=== PATIENT | female | born 1965 | race Two or more races ===

== ENCOUNTER 2023-03-29 20:48 | Emergency (ER) | payer MEDICAID ==
[~2023-03-29] VITALS: Ht 157.5 cm; Wt 84.5 kg
[~2023-03-29 20:48] MED LIST: ALBU0.084 NEB; AUG875T PO; CARV3.1240 PO; CHOL25CH3 PO; CYCL-837 PO; DOCU-111 PO; FENT25DI2 TD; FLUT1SPR5; FURO20TA3 PO; HYDR-3682 PO; HYDR-4188 OR; HYDR-4798 PO; IBUP-1453 PO; IBUP1TAB4 PO; LEVO150T10 PO; LIDO5DIS21 TOP; NALO4SPR2; POTA10TA51 PO; SERT-160 PO; SPIR25TA PO; SPIR25TA8 PO; TRIATAB3 OR; VERA120T92 PO
[2023-03-29 21:11] VITALS: TEMP 100.8
[2023-03-29 21:15] VITALS: BP 119/71; PULSE 87; RESP 18; O2SAT 92
[2023-03-29] MEDS ORDERED: ACETAMINOPHEN 500 MG TAB PO ONE (21:15)
[2023-03-29 21:47] LABS: Basophils # (auto) 0.1 10 ^3/uL (0-0.2); Basophils % (auto) 0.7 % (0.0-2.0); Eosinophils # (auto) 0.2 10 ^3/uL (0-0.8); Eosinophils % (auto) 1.8 % (0.0-7.0); Hematocrit 39.3 % (36.0-46.0); Hemoglobin 13.3 g/dL (12.2-16.2); Lymphocytes # (auto) 0.9 10 ^3/uL (0.4-5.4); Lymphocytes % (auto) 7.6 % (10.0-50.0); Mean Corpuscular Hemoglobin 28.2 pg (28.0-32.0); Mean Corpuscular Hgb Conc. 33.9 g/dL (32.0-36.0); Mean Corpuscular Volume 83.1 fL (80.0-100.0); Monocytes % (auto) 8.4 % (0.0-12.0); Neutrophils % (auto) 81.5 % (37.0-80.0); Nucleated Red Blood Cells % 0.1 %; Red Blood Cells 4.73 10^6/uL (4.0-5.20); Red Cell Distribution Width 14.1 % (11.8-14.3); White Blood Cell 12.3 10^3/uL (4.4-10.8)
[2023-03-29 22:02] LABS: Alkaline Phosphatase 104 U/L (46-116)
[2023-03-29 22:03] LABS: Alanine Aminotransferase 20 U/L (7-40); Albumin 4.5 g/dL (3.2-4.8); Anion Gap 8 (5-15); Aspartate Aminotransferase 22 U/L (13-40); Bilirubin, Total 0.7 mg/dL (0.2-1.0); Blood Urea Nitrogen 9 mg/dL (9-23); Calcium 9.1 mg/dL (8.5-10.1); Carbon Dioxide 31 mmol/L (20-30); Chloride 87 mmol/L (98-107); Glucose 102 mg/dL (74-106); Sodium 126 mmol/L (136-145); Total Protein 6.8 g/dL (5.7-8.2)
[2023-03-29 22:07] LABS: Potassium 2.3 mmol/L (3.5-5.1)
[2023-03-29] MEDS ORDERED: PIPERACILLIN-TAZOB 3.375GM 100 ML IV ONE (23:00)
[2023-03-29] MEDS ORDERED: MAGNESIUM SULFATE 1GM/100ML 100 ML IV ONE (23:00)
[2023-03-29] MEDS ORDERED: VANCOMYCIN 1GM/250ML 250 ML IV ONE (23:00)
[2023-03-29] MEDS ORDERED: POTASSIUM CHL 20MEQ/100ML 100 ML IV SCH (23:00)
[2023-03-29] MEDS ORDERED: SODIUM CHL 3% 500 ML IV ONE (23:00)
[2023-03-29 23:58] LABS: Erythrocyte Sedimentation Rate 8 mm/hr (0-20)
[2023-03-30] MEDS ORDERED: VANCOMYCIN HCL 500MG/5ML ORAL SOL GT SCH (06:00)
[2023-03-31] MEDS ORDERED: TRIA75TA55 PO (17:18)
== END 2023-03-30 00:59 | disposition left against medical advice (07) ==
LOC: ER 20:48
DX: S91.301A Unspecified open wound, right foot, initial encounter (principal); I10 Essential (primary) hypertension; M19.90 Unspecified osteoarthritis, unspecified site; J45.909 Unspecified asthma, uncomplicated; Z98.890 Other specified postprocedural states; Z88.8 Allergy status to other drugs, medicaments and biological substances; Z79.899 Other long term (current) drug therapy; X58.XXXA Exposure to other specified factors, initial encounter; Y93.89 Activity, other specified; Y92.89 Other specified places as the place of occurrence of the external cause; Y99.8 Other external cause status
CPT/HCPCS: 36415; 71045; 73700; 80053; 83605; 83880; 84484; 85025; 85652; 86141; 87040; 93005

== ENCOUNTER 2023-03-30 18:33 | Inpatient (IN) | payer MEDICAID ==
[~2023-03-30] VITALS: Ht 157.5 cm; Wt 88.6 kg
[2023-03-30 20:15] LABS: Basophils # (auto) 0 10 ^3/uL (0-0.2); Basophils % (auto) 0.3 % (0.0-2.0); Eosinophils # (auto) 0.1 10 ^3/uL (0-0.8); Eosinophils % (auto) 0.6 % (0.0-7.0); Hematocrit 38.7 % (36.0-46.0); Hemoglobin 13.3 g/dL (12.2-16.2); Lymphocytes # (auto) 0.5 10 ^3/uL (0.4-5.4); Lymphocytes % (auto) 5.5 % (10.0-50.0); Mean Corpuscular Hemoglobin 28.3 pg (28.0-32.0); Mean Corpuscular Hgb Conc. 34.3 g/dL (32.0-36.0); Mean Corpuscular Volume 82.6 fL (80.0-100.0); Monocytes # (auto) 0.3 10 ^3/uL (0-1.3); Monocytes % (auto) 3.5 % (0.0-12.0); Neutrophils # (auto) 8.4 10 ^3/uL (1.6-8.6); Neutrophils % (auto) 90.1 % (37.0-80.0); Red Blood Cells 4.69 10^6/uL (4.0-5.20); Red Cell Distribution Width 14.3 % (11.8-14.3); White Blood Cell 9.3 10^3/uL (4.4-10.8)
[2023-03-30 20:33] LABS: Alanine Aminotransferase 19 U/L (7-40); Albumin 4.5 g/dL (3.2-4.8); Alkaline Phosphatase 99 U/L (46-116); Anion Gap 7 (5-15); Aspartate Aminotransferase 26 U/L (13-40); BUN/Creatinine Ratio 11.9 (10.0-20.0); Blood Urea Nitrogen 10 mg/dL (9-23); Calcium 9.2 mg/dL (8.5-10.1); Carbon Dioxide 32 mmol/L (20-30); Chloride 86 mmol/L (98-107); Glucose 96 mg/dL (74-106); Sodium 125 mmol/L (136-145)
[2023-03-30 20:34] LABS: Bilirubin, Total 0.9 mg/dL (0.2-1.0); Total Protein 6.7 g/dL (5.7-8.2)
[2023-03-30 20:39] LABS: Potassium 2.6 mmol/L (3.5-5.1)
[2023-03-30] MEDS ORDERED: VANCOMYCIN 1GM/250ML 250 ML IV ONE (21:00)
[2023-03-30] MEDS ORDERED: cefTRIAXone 1GM/50ML D5W 50 ML IV ONE (21:00)
[2023-03-30] MEDS ORDERED: ONDANSETRON HCL 4 MG/2 ML VIAL IV ONE (21:00)
[2023-03-30] MEDS ORDERED: hydrALAZINE HCL 20 MG/ML VL IV PRN (22:30)
[2023-03-30] MEDS ORDERED: NITROGLYCERIN 0.4 MG SL TAB SL PRN (22:30)
[2023-03-30] MEDS ORDERED: DOCUSATE SOD 100 MG CAP PO PRN (22:30)
[2023-03-30] MEDS ORDERED: ACETAMINOPHEN 325 MG TAB PO ONE (22:30)
[2023-03-30] MEDS ORDERED: ACETAMINOPHEN 325 MG TAB PO PRN (22:30)
[2023-03-30] MEDS ORDERED: ceFAZolin 1GM/50ML 50 ML IV ONE (22:30)
[2023-03-30] MEDS ORDERED: MORPHINE SULFATE INJ 2 MG/ml SYRG IV PRN ×2 (22:30)
[2023-03-30] MEDS ORDERED: PANTOPRAZOLE 40 MG/10 ML VIAL INJ IV ONE (22:45)
[2023-03-30 23:42] LABS: Erythrocyte Sedimentation Rate 9 mm/hr (0-20)
[2023-03-31] MEDS: SODIUM CHLORIDE 0.9% 1,000 ML IV SCH ×2 (00:09→07:41)
[2023-03-31] MEDS: POTASSIUM CHL 20MEQ/100ML 100 ML IV SCH ×2 (01:06→03:39)
[2023-03-31 01:08] VITALS: PULSE 93; RESP 20; O2SAT 94
[2023-03-31] MEDS: IBUPROFEN 800 MG TAB PO PRN (03:54)
[2023-03-31] MEDS ORDERED: traMADol HCL 50 MG TAB PO ONE (05:45)
[2023-03-31] MEDS ORDERED: PATIENTS OWN MEDICATION (Cyclobenzaprine Hcl 10 MG) PO SCH (06:00)
[2023-03-31] MEDS ORDERED: ceFAZolin 1GM/50ML 50 ML IV SCH (06:00)
[2023-03-31 07:18] LABS: Basophils # (auto) 0 10 ^3/uL (0-0.2); Basophils % (auto) 0.5 % (0.0-2.0); Eosinophils # (auto) 0 10 ^3/uL (0-0.8); Eosinophils % (auto) 0.2 % (0.0-7.0); Hematocrit 34.6 % (36.0-46.0); Hemoglobin 11.8 g/dL (12.2-16.2); Lymphocytes # (auto) 0.4 10 ^3/uL (0.4-5.4); Lymphocytes % (auto) 5.7 % (10.0-50.0); Mean Corpuscular Hemoglobin 28.1 pg (28.0-32.0); Mean Corpuscular Hgb Conc. 34.1 g/dL (32.0-36.0); Mean Corpuscular Volume 82.4 fL (80.0-100.0); Monocytes # (auto) 0.5 10 ^3/uL (0-1.3); Monocytes % (auto) 6.5 % (0.0-12.0); Neutrophils # (auto) 6.6 10 ^3/uL (1.6-8.6); Neutrophils % (auto) 87.1 % (37.0-80.0); Red Cell Distribution Width 14.2 % (11.8-14.3); White Blood Cell 7.5 10^3/uL (4.4-10.8)
[2023-03-31 07:27] LABS: INR 1.18 (0.9-1.15); Prothrombin Time 12.3 sec (9.3-11.8)
[2023-03-31 07:33] LABS: Alanine Aminotransferase 17 U/L (7-40); Albumin 3.9 g/dL (3.2-4.8); Alkaline Phosphatase 87 U/L (46-116); Anion Gap 7 (5-15); Aspartate Aminotransferase 20 U/L (13-40); BUN/Creatinine Ratio 11.1 (10.0-20.0); Blood Urea Nitrogen 7 mg/dL (9-23); Calcium 8.6 mg/dL (8.5-10.1); Carbon Dioxide 28 mmol/L (20-30); Chloride 94 mmol/L (98-107); Glucose 107 mg/dL (74-106); Sodium 129 mmol/L (136-145)
[2023-03-31 07:34] LABS: Bilirubin, Total 0.5 mg/dL (0.2-1.0); Total Protein 5.9 g/dL (5.7-8.2)
[2023-03-31 07:38] LABS: Potassium 2.8 mmol/L (3.5-5.1)
[2023-03-31 08:00] VITALS: PULSE 74; RESP 18; O2SAT 98
[2023-03-31] MEDS ORDERED: POTASSIUM EFFERVESENT TAB 25 MEQ PO ONE (08:00)
[2023-03-31] MEDS ORDERED: HYDROCHLOROTHIAZIDE OR SCH (10:00)
[2023-03-31] MEDS ORDERED: TRIAMTERENE OR SCH (10:00)
[2023-03-31] MEDS ORDERED: PATIENTS OWN MEDICATION (Sertraline Hcl 100 MG) PO SCH (10:00)
[2023-03-31] MEDS ORDERED: PATIENTS OWN MEDICATION (Levothyroxine Sodium 150 MCG) PO SCH (10:00)
[2023-03-31] MEDS ORDERED: PATIENTS OWN MEDICATION (Potassium Chloride (Potassium Chloride Cr) 10 MEQ) PO SCH (10:00)
[2023-03-31] MEDS ORDERED: PANTOPRAZOLE 40 MG/10 ML VIAL INJ IV SCH (10:00)
[2023-03-31] MEDS: LIDOCAINE 5% TOPICAL PATCH TOP SCH (11:09)
[2023-03-31] MEDS: POTASSIUM CHL 10 Meq TABLET PO SCH ×2 (11:10→22:53)
[2023-03-31] MEDS: CARVEDILOL 3.125 MG TAB PO SCH ×2 (11:11→22:48)
[2023-03-31] MEDS: hydrOXYchloroQUINE SULFATE 200 MG TAB PO SCH ×2 (11:11→22:00)
[2023-03-31] MEDS: SERTRALINE HCL 50 MG TAB PO SCH ×2 (11:12→22:00)
[2023-03-31] MEDS: FUROSEMIDE 20 MG TAB PO SCH (11:13)
[2023-03-31] MEDS: SPIRONOLACTONE 25 MG TAB PO SCH (11:14)
[2023-03-31] MEDS: TRIAMTERENE/HCTZ 37.5/25 MG CAP/TAB PO SCH (11:14)
[2023-03-31] MEDS: VERAPAMIL HCL 120 mg ER tab PO SCH (11:15)
[2023-03-31] MEDS: LEVOTHYROXINE SODIUM 50 MCG TAB PO SCH (11:16)
[2023-03-31] MEDS: PATIENTS OWN MEDICATION (Hydroxyzine Hcl 25 MG) PO SCH (11:18)
[2023-03-31] MEDS: SOD CHL 0.9%/ KCL 40MEQ 1,000 ML IV SCH (12:18)
[2023-03-31] MEDS: CYCLOBENZAPRINE HCL 10 MG TAB PO SCH ×2 (14:18→22:00)
[2023-03-31] MEDS: PIPERACILLIN-TAZOB 3.375GM 100 ML IV SCH (14:46)
[2023-03-31] MEDS: fentaNYL 25MCG/HR 25 MCG/HR PAT TD SCH (15:37)
[2023-03-31] MEDS ORDERED: TRIA75TA55 PO (17:18)
[2023-04-01] MEDS: PIPERACILLIN-TAZOB 3.375GM 100 ML IV SCH ×4 (00:16→20:54)
[2023-04-01] MEDS: SOD CHL 0.9%/ KCL 40MEQ 1,000 ML IV SCH ×3 (00:16→23:52)
[2023-04-01 05:00] VITALS: BP 133/80; PULSE 70; RESP 16; TEMP 98.3; O2SAT 94
[2023-04-01] MEDS: CYCLOBENZAPRINE HCL 10 MG TAB PO SCH ×3 (06:12→20:55)
[2023-04-01] MEDS: LEVOTHYROXINE SODIUM 100 MCG TAB PO SCH (06:13)
[2023-04-01] MEDS: IBUPROFEN 800 MG TAB PO PRN (06:25)
[2023-04-01 08:30] VITALS: PULSE 73
[2023-04-01 09:00] VITALS: BP 148/86; PULSE 71; RESP 20; TEMP 97.8; O2SAT 93
[2023-04-01 09:26] LABS: Basophils # (auto) 0 10 ^3/uL (0-0.2); Basophils % (auto) 0.7 % (0.0-2.0); Eosinophils # (auto) 0.1 10 ^3/uL (0-0.8); Eosinophils % (auto) 1.9 % (0.0-7.0); Hematocrit 33.8 % (36.0-46.0); Hemoglobin 11.5 g/dL (12.2-16.2); Lymphocytes # (auto) 0.6 10 ^3/uL (0.4-5.4); Mean Corpuscular Hemoglobin 28.4 pg (28.0-32.0); Mean Corpuscular Hgb Conc. 33.9 g/dL (32.0-36.0); Mean Corpuscular Volume 83.8 fL (80.0-100.0); Monocytes # (auto) 0.5 10 ^3/uL (0-1.3); Monocytes % (auto) 13.5 % (0.0-12.0); Neutrophils # (auto) 2.5 10 ^3/uL (1.6-8.6); Neutrophils % (auto) 66.9 % (37.0-80.0); Nucleated Red Blood Cells % 0.2 %; Red Blood Cells 4.04 10^6/uL (4.0-5.20); Red Cell Distribution Width 14.5 % (11.8-14.3); White Blood Cell 3.7 10^3/uL (4.4-10.8)
[2023-04-01 09:36] LABS: Chloride 102 mmol/L (98-107); Potassium 3.6 mmol/L (3.5-5.1); Sodium 133 mmol/L (136-145)
[2023-04-01 09:38] LABS: Anion Gap 4 (5-15); Calcium 8.5 mg/dL (8.5-10.1); Carbon Dioxide 27 mmol/L (20-30)
[2023-04-01 09:43] LABS: BUN/Creatinine Ratio 9.8 (10.0-20.0); Blood Urea Nitrogen 6 mg/dL (9-23); Glucose 129 mg/dL (74-106)
[2023-04-01] MEDS: PATIENTS OWN MEDICATION (Hydroxyzine Hcl 25 MG) PO SCH (10:00)
[2023-04-01] MEDS: VERAPAMIL HCL 120 mg ER tab PO SCH (10:09)
[2023-04-01] MEDS: hydrOXYchloroQUINE SULFATE 200 MG TAB PO SCH ×2 (10:09→20:55)
[2023-04-01] MEDS: TRIAMTERENE/HCTZ 37.5/25 MG CAP/TAB PO SCH (10:10)
[2023-04-01] MEDS: SERTRALINE HCL 50 MG TAB PO SCH ×2 (10:10→20:55)
[2023-04-01] MEDS: FUROSEMIDE 20 MG TAB PO SCH (10:11)
[2023-04-01] MEDS: SPIRONOLACTONE 25 MG TAB PO SCH (10:11)
[2023-04-01] MEDS: CARVEDILOL 3.125 MG TAB PO SCH ×2 (10:12→20:57)
[2023-04-01] MEDS: POTASSIUM CHL 10 Meq TABLET PO SCH (10:13)
[2023-04-01] MEDS: LEVOTHYROXINE SODIUM 50 MCG TAB PO SCH (10:13)
[2023-04-01] MEDS: LIDOCAINE 5% TOPICAL PATCH TOP SCH (10:14)
[2023-04-01 13:00] VITALS: BP 115/57; PULSE 70; RESP 17; TEMP 97.6; O2SAT 95
[2023-04-01] MEDS: traMADol HCL 50 MG TAB PO PRN (15:35)
[2023-04-01 17:00] VITALS: BP 128/81; PULSE 68; RESP 20; TEMP 98.2; O2SAT 97
[2023-04-01] MEDS: ONDANSETRON HCL 4 MG/2 ML VIAL IV PRN (19:48)
[2023-04-01 22:00] VITALS: BP 147/92; PULSE 76; RESP 17; TEMP 97; O2SAT 96
[2023-04-02 05:14] VITALS: BP 137/71; PULSE 72; RESP 18; TEMP 97.1; O2SAT 93
[2023-04-02] MEDS: CYCLOBENZAPRINE HCL 10 MG TAB PO SCH ×3 (05:54→21:28)
[2023-04-02] MEDS: PIPERACILLIN-TAZOB 3.375GM 100 ML IV SCH ×3 (05:54→21:29)
[2023-04-02] MEDS: LEVOTHYROXINE SODIUM 100 MCG TAB PO SCH (05:59)
[2023-04-02 08:00] VITALS: PULSE 61; RESP 20; O2SAT 100
[2023-04-02 09:31] VITALS: BP 143/75; PULSE 61; RESP 20; TEMP 97.8; O2SAT 100
[2023-04-02] MEDS: SERTRALINE HCL 50 MG TAB PO SCH ×2 (09:53→21:27)
[2023-04-02] MEDS: hydrOXYchloroQUINE SULFATE 200 MG TAB PO SCH ×2 (09:53→21:28)
[2023-04-02] MEDS: FUROSEMIDE 20 MG TAB PO SCH (09:54)
[2023-04-02] MEDS: CARVEDILOL 3.125 MG TAB PO SCH ×2 (09:54→21:28)
[2023-04-02] MEDS: LEVOTHYROXINE SODIUM 50 MCG TAB PO SCH (09:54)
[2023-04-02] MEDS: VERAPAMIL HCL 120 mg ER tab PO SCH (09:55)
[2023-04-02] MEDS: PATIENTS OWN MEDICATION (Hydroxyzine Hcl 25 MG) PO SCH (09:56)
[2023-04-02] MEDS: LIDOCAINE 5% TOPICAL PATCH TOP SCH (09:57)
[2023-04-02] MEDS: DAKINS HALF STR 0.25% (NaHypochlorite) 473 ML TOPICAL SOL TOP SCH (09:57)
[2023-04-02] MEDS: ONDANSETRON HCL 4 MG/2 ML VIAL IV PRN ×2 (10:39→17:59)
[2023-04-02 12:57] VITALS: BP 135/72; PULSE 68; RESP 18; TEMP 97.6; O2SAT 98
[2023-04-02 16:42] VITALS: BP 141/74; PULSE 73; RESP 19; TEMP 98.5; O2SAT 94
[2023-04-02] MEDS: traMADol HCL 50 MG TAB PO PRN (21:28)
[2023-04-02 22:00] VITALS: BP 155/87; PULSE 74; RESP 18; TEMP 97.7; O2SAT 92
[2023-04-03] VITALS (7 sets, daily range): BP systolic 135–162; BP diastolic 74–94; PULSE 70–86; RESP 18–20; TEMP 97.5–98.1; O2SAT 95–99
[2023-04-03] MEDS: CYCLOBENZAPRINE HCL 10 MG TAB PO SCH ×3 (06:51→22:38)
[2023-04-03] MEDS: LEVOTHYROXINE SODIUM 100 MCG TAB PO SCH (06:51)
[2023-04-03] MEDS: PIPERACILLIN-TAZOB 3.375GM 100 ML IV SCH ×3 (06:51→22:37)
[2023-04-03 08:42] LABS: Basophils # (auto) 0 10 ^3/uL (0-0.2); Basophils % (auto) 0.9 % (0.0-2.0); Eosinophils # (auto) 0.1 10 ^3/uL (0-0.8); Eosinophils % (auto) 2.6 % (0.0-7.0); Hematocrit 39.8 % (36.0-46.0); Hemoglobin 13.2 g/dL (12.2-16.2); Lymphocytes # (auto) 1.5 10 ^3/uL (0.4-5.4); Lymphocytes % (auto) 31.2 % (10.0-50.0); Mean Corpuscular Hemoglobin 28.3 pg (28.0-32.0); Mean Corpuscular Hgb Conc. 33.1 g/dL (32.0-36.0); Mean Corpuscular Volume 85.4 fL (80.0-100.0); Monocytes # (auto) 0.5 10 ^3/uL (0-1.3); Monocytes % (auto) 10.5 % (0.0-12.0); Neutrophils # (auto) 2.6 10 ^3/uL (1.6-8.6); Neutrophils % (auto) 54.8 % (37.0-80.0); Nucleated Red Blood Cells % 0.1 %; Red Blood Cells 4.66 10^6/uL (4.0-5.20); Red Cell Distribution Width 14.7 % (11.8-14.3); White Blood Cell 4.7 10^3/uL (4.4-10.8)
[2023-04-03 08:48] LABS: Chloride 105 mmol/L (98-107); Potassium 3.7 mmol/L (3.5-5.1); Sodium 137 mmol/L (136-145)
[2023-04-03 08:49] LABS: Anion Gap 6 (5-15); Calcium 9.4 mg/dL (8.5-10.1); Carbon Dioxide 26 mmol/L (20-30)
[2023-04-03 08:54] LABS: Glucose 83 mg/dL (74-106)
[2023-04-03 08:55] LABS: BUN/Creatinine Ratio 8.6 (10.0-20.0); Blood Urea Nitrogen < 5 mg/dL (9-23)
[2023-04-03] MEDS: VERAPAMIL HCL 120 mg ER tab PO SCH (09:47)
[2023-04-03] MEDS: CARVEDILOL 3.125 MG TAB PO SCH ×2 (09:48→22:39)
[2023-04-03] MEDS: FUROSEMIDE 20 MG TAB PO SCH (09:49)
[2023-04-03] MEDS: LEVOTHYROXINE SODIUM 50 MCG TAB PO SCH (09:49)
[2023-04-03] MEDS: hydrOXYchloroQUINE SULFATE 200 MG TAB PO SCH ×2 (09:50→22:38)
[2023-04-03] MEDS: traMADol HCL 50 MG TAB PO PRN ×2 (09:50→18:16)
[2023-04-03] MEDS: POTASSIUM CHL 10 Meq TABLET PO SCH (09:51)
[2023-04-03] MEDS: SERTRALINE HCL 50 MG TAB PO SCH ×2 (09:51→22:38)
[2023-04-03] MEDS: DAKINS HALF STR 0.25% (NaHypochlorite) 473 ML TOPICAL SOL TOP SCH (09:51)
[2023-04-03] MEDS: LIDOCAINE 5% TOPICAL PATCH TOP SCH (09:51)
[2023-04-03] MEDS: PATIENTS OWN MEDICATION (Hydroxyzine Hcl 25 MG) PO SCH (10:00)
[2023-04-03] MEDS: fentaNYL 25MCG/HR 25 MCG/HR PAT TD SCH (14:31)
[2023-04-04 05:09] VITALS: BP 151/82; PULSE 70; RESP 18; TEMP 98.1; O2SAT 95
[2023-04-04] MEDS: LEVOTHYROXINE SODIUM 100 MCG TAB PO SCH (06:12)
[2023-04-04] MEDS: CYCLOBENZAPRINE HCL 10 MG TAB PO SCH ×2 (06:12→13:54)
[2023-04-04] MEDS: PIPERACILLIN-TAZOB 3.375GM 100 ML IV SCH ×2 (06:12→13:54)
[2023-04-04 08:00] VITALS: PULSE 61; RESP 16; O2SAT 99
[2023-04-04 09:19] VITALS: BP 135/69; PULSE 61; RESP 16; TEMP 97.9; O2SAT 99
[2023-04-04] MEDS: hydrOXYchloroQUINE SULFATE 200 MG TAB PO SCH (09:36)
[2023-04-04] MEDS: FUROSEMIDE 20 MG TAB PO SCH (09:36)
[2023-04-04] MEDS: CARVEDILOL 3.125 MG TAB PO SCH (09:36)
[2023-04-04] MEDS: POTASSIUM CHL 10 Meq TABLET PO SCH (09:36)
[2023-04-04] MEDS: VERAPAMIL HCL 120 mg ER tab PO SCH (09:37)
[2023-04-04] MEDS: LIDOCAINE 5% TOPICAL PATCH TOP SCH (09:37)
[2023-04-04] MEDS: LEVOTHYROXINE SODIUM 50 MCG TAB PO SCH (09:37)
[2023-04-04] MEDS: SERTRALINE HCL 50 MG TAB PO SCH (09:37)
[2023-04-04] MEDS: DAKINS HALF STR 0.25% (NaHypochlorite) 473 ML TOPICAL SOL TOP SCH (09:38)
[2023-04-04] MEDS: PATIENTS OWN MEDICATION (Hydroxyzine Hcl 25 MG) PO SCH (09:51)
[2023-04-04] MEDS ORDERED: LEVO500T91 PO (15:55)
[2023-04-04] MEDS ORDERED: FLUC150T38 PO (15:57)
[2023-04-04 16:04] VITALS: BP 111/80; PULSE 60; RESP 16; TEMP 98.4; O2SAT 99
== END 2023-04-04 16:48 | disposition home or self-care (01) | DRG 383 ==
LOC: ER 18:33 → EAST 22:34 → TELE 22:34 → TELE-EAST 03-31 22:02 → EAST 04-01 11:33
PROVIDERS: ADMIT Nurse Practitioner Family; ATTEND Nurse Practitioner Acute Care
DX: L03.115 Cellulitis of right lower limb (principal); R78.81 Bacteremia; L97.519 Non-pressure chronic ulcer of other part of right foot with unspecified severity; E87.1 Hypo-osmolality and hyponatremia; M32.9 Systemic lupus erythematosus, unspecified; I50.9 Heart failure, unspecified; I11.0 Hypertensive heart disease with heart failure; T81.40XA Infection following a procedure, unspecified, initial encounter; J45.909 Unspecified asthma, uncomplicated; B96.89 Other specified bacterial agents as the cause of diseases classified elsewhere; E87.6 Hypokalemia; E66.9 Obesity, unspecified; E03.9 Hypothyroidism, unspecified; G89.4 Chronic pain syndrome; Z53.29 Procedure and treatment not carried out because of patient's decision for other reasons; Z88.8 Allergy status to other drugs, medicaments and biological substances; Z68.35 Body mass index [BMI] 35.0-35.9, adult; Z82.49 Family history of ischemic heart disease and other diseases of the circulatory system; Y83.8 Other surgical procedures as the cause of abnormal reaction of the patient, or of later complication, without mention of misadventure at the time of the procedure; Y92.89 Other specified places as the place of occurrence of the external cause
CPT/HCPCS: 36415; 73630; 73700; 80048; 80053; 83605; 84132; 84443; 85025; 85610; 85652; 85730; 87040; 87077; 87081; 87186; 87205; C9113; G0378; J0690; J0696; J2405; J2543; J3480

== ENCOUNTER 2023-04-19 16:14 | Inpatient (IN) | payer MEDICAID ==
[~2023-04-19] VITALS: Ht 157.5 cm; Wt 85.6 kg
[~2023-04-19 16:14] MED LIST changes: -AUG875T PO; -CYCL-837 PO; +FLUC150T38 PO; -IBUP-1453 PO; +LEVO500T91 PO; -POTA10TA51 PO; -SPIR25TA PO; -TRIATAB3 OR
[2023-04-19 18:15] LABS: Basophils # (auto) 0.1 10 ^3/uL (0-0.2); Basophils % (auto) 1.2 % (0.0-2.0); Eosinophils # (auto) 0.4 10 ^3/uL (0-0.8); Eosinophils % (auto) 5.9 % (0.0-7.0); Hematocrit 38.6 % (36.0-46.0); Hemoglobin 12.9 g/dL (12.2-16.2); Lymphocytes # (auto) 1.4 10 ^3/uL (0.4-5.4); Lymphocytes % (auto) 19.7 % (10.0-50.0); Mean Corpuscular Hemoglobin 27.7 pg (28.0-32.0); Mean Corpuscular Hgb Conc. 33.4 g/dL (32.0-36.0); Mean Corpuscular Volume 82.9 fL (80.0-100.0); Monocytes # (auto) 0.7 10 ^3/uL (0-1.3); Monocytes % (auto) 10.1 % (0.0-12.0); Neutrophils # (auto) 4.4 10 ^3/uL (1.6-8.6); Neutrophils % (auto) 63.1 % (37.0-80.0); Red Blood Cells 4.66 10^6/uL (4.0-5.20); Red Cell Distribution Width 14.6 % (11.8-14.3); White Blood Cell 6.9 10^3/uL (4.4-10.8)
[2023-04-19 18:45] LABS: Urine Bacteria FEW /hpf (None Seen); Urine Blood Negative /uL (Negative); Urine Clarity Clear (Clear); Urine Color Colorless (Yellow); Urine Protein, UAD Negative (Negative); Urine Specific Gravity 1.006 (1.001-1.035); Urine Urobilinogen Normal (Negative); Urine WBC 2 /hpf (0 - 5); Urine pH 6.5 (5.0-8.0)
[2023-04-19 19:00] LABS: Alanine Aminotransferase 16 U/L (7-40); Albumin 4.3 g/dL (3.2-4.8); Alkaline Phosphatase 88 U/L (46-116); Anion Gap 6 (5-15); Aspartate Aminotransferase 27 U/L (13-40); BUN/Creatinine Ratio 15.7 (10.0-20.0); Bilirubin, Total 0.4 mg/dL (0.2-1.0); Blood Urea Nitrogen 13 mg/dL (9-23); Calcium 9.4 mg/dL (8.5-10.1); Carbon Dioxide 34 mmol/L (20-30); Chloride 93 mmol/L (98-107); Glucose 88 mg/dL (74-106); Potassium 3.2 mmol/L (3.5-5.1); Sodium 133 mmol/L (136-145); Total Protein 6.1 g/dL (5.7-8.2)
[2023-04-19] MEDS ORDERED: VANCOMYCIN PER PHARMACY 0 MG IV SCH ×2 (19:30→20:45)
[2023-04-19] MEDS ORDERED: PIPERACILLIN-TAZOB 3.375GM 100 ML IV ONE (19:30)
[2023-04-19] MEDS ORDERED: VANCOMYCIN 1GM/200ML 250 ML IV ONE ×2 (20:30→23:00)
[2023-04-19] MEDS ORDERED: ACETAMINOPHEN 325 MG TAB PO PRN (20:45)
[2023-04-19] MEDS ORDERED: DOCUSATE SOD 100 MG CAP PO PRN (20:45)
[2023-04-19] MEDS ORDERED: SOD CHL 0.9%/ KCL 40MEQ 1,000 ML IV ONE (20:45)
[2023-04-19] MEDS ORDERED: IPRATROPIUM BROM 0.5 MG/2.5ML INH SOL NEB PRN (21:15)
[2023-04-19] MEDS ORDERED: CYCLOBENZAPRINE HCL 10 MG TAB PO PRN (21:15)
[2023-04-19] MEDS ORDERED: ALBUTEROL MEDNEB 2.5 mg/3ml NEB NEB PRN (21:15)
[2023-04-19] MEDS ORDERED: NALOXONE HCL 4 MG SCH (21:15)
[2023-04-19 21:20] VITALS: BP 119/86; PULSE 96; RESP 18; TEMP 97.8; O2SAT 93; O2SAT 97
[2023-04-19] MEDS ORDERED: fentaNYL 25MCG/HR 25 MCG/HR PAT TD SCH (22:00)
[2023-04-19] MEDS ORDERED: CARVEDILOL 3.125 MG TAB PO SCH (22:00)
[2023-04-19 23:35] VITALS: PULSE 84; RESP 18; O2SAT 93
[2023-04-20] VITALS (11 sets, daily range): BP systolic 95–148; BP diastolic 55–82; PULSE 63–88; RESP 15–20; TEMP 36.6; O2SAT 90–95
[2023-04-20] MEDS: PIPERACILLIN-TAZOB 3.375GM 100 ML IV SCH ×2 (00:08→06:17)
[2023-04-20] MEDS: SERTRALINE HCL 50 MG TAB PO SCH ×3 (00:09→21:33)
[2023-04-20] MEDS: hydrOXYchloroQUINE SULFATE 200 MG TAB PO SCH ×3 (02:21→21:33)
[2023-04-20] MEDS ORDERED: FENT12DI TOP (02:27)
[2023-04-20] MEDS ORDERED: VASOPRESSIN 20 UNIT/ML ONE (04:59)
[2023-04-20] MEDS: LEVOTHYROXINE SODIUM 50 MCG TAB PO SCH (06:15)
[2023-04-20 06:50] LABS: Alanine Aminotransferase 16 U/L (7-40); Albumin 3.6 g/dL (3.2-4.8); Alkaline Phosphatase 70 U/L (46-116); Anion Gap 7 (5-15); Aspartate Aminotransferase 20 U/L (13-40); Bilirubin, Total 0.3 mg/dL (0.2-1.0); Blood Urea Nitrogen 12 mg/dL (9-23); Calcium 8.8 mg/dL (8.5-10.1); Carbon Dioxide 32 mmol/L (20-30); Chloride 94 mmol/L (98-107); Glucose 96 mg/dL (74-106); Potassium 2.6 mmol/L (3.5-5.1); Sodium 133 mmol/L (136-145); Total Protein 5.3 g/dL (5.7-8.2)
[2023-04-20 07:06] LABS: Basophils # (auto) 0 10 ^3/uL (0-0.2); Basophils % (auto) 0.8 % (0.0-2.0); Eosinophils # (auto) 0.4 10 ^3/uL (0-0.8); Eosinophils % (auto) 5.8 % (0.0-7.0); Hemoglobin 11.1 g/dL (12.2-16.2); Lymphocytes # (auto) 1.6 10 ^3/uL (0.4-5.4); Lymphocytes % (auto) 26.2 % (10.0-50.0); Mean Corpuscular Hemoglobin 27.7 pg (28.0-32.0); Mean Corpuscular Hgb Conc. 33.8 g/dL (32.0-36.0); Mean Corpuscular Volume 82.1 fL (80.0-100.0); Monocytes # (auto) 0.8 10 ^3/uL (0-1.3); Monocytes % (auto) 13.3 % (0.0-12.0); Neutrophils # (auto) 3.3 10 ^3/uL (1.6-8.6); Neutrophils % (auto) 53.9 % (37.0-80.0); Nucleated Red Blood Cells % 0.1 %; Red Blood Cells 4.01 10^6/uL (4.0-5.20); Red Cell Distribution Width 14.4 % (11.8-14.3); White Blood Cell 6.1 10^3/uL (4.4-10.8)
[2023-04-20] MEDS ORDERED: VERAPAMIL HCL 180mg SR tab PO SCH (10:00)
[2023-04-20] MEDS: SPIRONOLACTONE 25 MG TAB PO SCH (10:53)
[2023-04-20] MEDS: PANTOPRAZOLE 40 MG TAB PO SCH (10:54)
[2023-04-20] MEDS: fentaNYL 25MCG/HR 25 MCG/HR PAT TD SCH (10:57)
[2023-04-20] MEDS ORDERED: MEROPENEM 1GM IVPB 100 ML IV ONE (11:45)
[2023-04-20] MEDS ORDERED: POTASSIUM CHLORIDE 40 MEQ, LIDOCAINE 1% (LOCAL ANESTH.) 4 ML in SODIUM CHL 0.9% 250 ML IV ONE (11:45)
[2023-04-20] MEDS ORDERED: POTASSIUM CHL 20 Meq TABLET PO ONE (11:45)
[2023-04-20] MEDS: FUROSEMIDE 20 MG TAB PO SCH (13:10)
[2023-04-20] MEDS: LOPERAMIDE HCL 2 MG CAP/TAB PO PRN (13:11)
[2023-04-20] MEDS: ONDANSETRON HCL 4 MG/2 ML VIAL IV PRN ×2 (13:12→20:52)
[2023-04-20] MEDS: MEROPENEM 1GM IVPB 100 ML IV SCH (20:29)
[2023-04-20] MEDS: VANCOMYCIN 1GM/200ML 250 ML IV SCH (20:29)
[2023-04-20] MEDS: hydrOXYzine 25 MG TAB or CAP PO SCH (21:33)
[2023-04-21] VITALS (7 sets, daily range): BP systolic 123–159; BP diastolic 59–88; PULSE 65–92; RESP 16–18; TEMP 97.9–98.6; O2SAT 93–100
[2023-04-21] MEDS: LOPERAMIDE HCL 2 MG CAP/TAB PO PRN ×5 (00:39→20:40)
[2023-04-21] MEDS: MEROPENEM 1GM IVPB 100 ML IV SCH ×3 (04:41→20:43)
[2023-04-21] MEDS: ONDANSETRON HCL 4 MG/2 ML VIAL IV PRN ×2 (04:49→16:01)
[2023-04-21 06:14] LABS: Calcium 9.3 mg/dL (8.5-10.1); Chloride 99 mmol/L (98-107); Potassium 3.5 mmol/L (3.5-5.1); Sodium 134 mmol/L (136-145)
[2023-04-21 06:15] LABS: Anion Gap 6 (5-15); Carbon Dioxide 29 mmol/L (20-30)
[2023-04-21 06:18] LABS: Basophils # (auto) 0 10 ^3/uL (0-0.2); Basophils % (auto) 0.2 % (0.0-2.0); Eosinophils # (auto) 0.4 10 ^3/uL (0-0.8); Hematocrit 39.5 % (36.0-46.0); Hemoglobin 13.3 g/dL (12.2-16.2); Lymphocytes % (auto) 13.6 % (10.0-50.0); Mean Corpuscular Hgb Conc. 33.7 g/dL (32.0-36.0); Monocytes # (auto) 0.5 10 ^3/uL (0-1.3); Monocytes % (auto) 7.2 % (0.0-12.0); Neutrophils # (auto) 5.4 10 ^3/uL (1.6-8.6); Red Blood Cells 4.76 10^6/uL (4.0-5.20); Red Cell Distribution Width 14.9 % (11.8-14.3); White Blood Cell 7.3 10^3/uL (4.4-10.8)
[2023-04-21 06:20] LABS: BUN/Creatinine Ratio 7.2 (10.0-20.0); Blood Urea Nitrogen 5 mg/dL (9-23); Glucose 99 mg/dL (74-106)
[2023-04-21] MEDS: LEVOTHYROXINE SODIUM 50 MCG TAB PO SCH (06:20)
[2023-04-21 06:24] LABS: INR 1.11 (0.9-1.15); Partial Thromboplastin Time 32.3 SEC (24.5-34.5); Prothrombin Time 11.6 sec (9.3-11.8)
[2023-04-21 06:48] LABS: Magnesium 2.3 mg/dL (1.6-2.6)
[2023-04-21] MEDS: VANCOMYCIN 1GM/200ML 250 ML IV SCH ×2 (08:52→22:54)
[2023-04-21] MEDS: hydrOXYchloroQUINE SULFATE 200 MG TAB PO SCH ×2 (09:06→23:04)
[2023-04-21] MEDS: FUROSEMIDE 20 MG TAB PO SCH (09:07)
[2023-04-21] MEDS: SPIRONOLACTONE 25 MG TAB PO SCH (09:07)
[2023-04-21] MEDS: POTASSIUM CHL 20 Meq TABLET PO SCH (09:07)
[2023-04-21] MEDS: PANTOPRAZOLE 40 MG TAB PO SCH (09:07)
[2023-04-21] MEDS: SERTRALINE HCL 50 MG TAB PO SCH ×2 (09:18→23:04)
[2023-04-21] MEDS ORDERED: VERAPAMIL HCL 120 mg ER tab PO SCH (22:00)
[2023-04-21] MEDS: CARVEDILOL 3.125 MG TAB PO SCH (23:03)
[2023-04-21] MEDS: hydrOXYzine 25 MG TAB or CAP PO SCH (23:04)
[2023-04-22] VITALS (9 sets, daily range): BP systolic 143–158; BP diastolic 73–93; PULSE 80–99; RESP 16–20; TEMP 97.8–98.8; O2SAT 94–98
[2023-04-22] MEDS: MEROPENEM 1GM IVPB 100 ML IV SCH ×3 (04:08→22:00)
[2023-04-22] MEDS: LEVOTHYROXINE SODIUM 50 MCG TAB PO SCH (06:28)
[2023-04-22] MEDS: PANTOPRAZOLE 40 MG TAB PO SCH (10:00)
[2023-04-22] MEDS ORDERED: FUROSEMIDE 20 MG/2 ML VIAL IV ONE (10:15)
[2023-04-22] MEDS: SPIRONOLACTONE 25 MG TAB PO SCH (12:05)
[2023-04-22] MEDS: hydrOXYchloroQUINE SULFATE 200 MG TAB PO SCH ×2 (12:06→21:59)
[2023-04-22] MEDS: POTASSIUM CHL 20 Meq TABLET PO SCH (12:07)
[2023-04-22] MEDS: SERTRALINE HCL 50 MG TAB PO SCH ×2 (12:07→21:59)
[2023-04-22] MEDS: CARVEDILOL 3.125 MG TAB PO SCH ×2 (12:07→22:00)
[2023-04-22] MEDS: VANCOMYCIN 1GM/200ML 250 ML IV SCH (12:12)
[2023-04-22] MEDS: ONDANSETRON HCL 4 MG/2 ML VIAL IV PRN (20:59)
[2023-04-22] MEDS: hydrOXYzine 25 MG TAB or CAP PO SCH (21:59)
[2023-04-22] MEDS: VERAPAMIL HCL 180mg SR tab PO SCH (21:59)
[2023-04-23] VITALS (8 sets, daily range): BP systolic 133–176; BP diastolic 81–104; PULSE 90–96; RESP 16–22; TEMP 97.3–98.6; O2SAT 90–98
[2023-04-23] MEDS: VANCOMYCIN 1GM/200ML 250 ML IV SCH ×2 (01:58→17:29)
[2023-04-23] MEDS: ONDANSETRON HCL 4 MG/2 ML VIAL IV PRN ×3 (03:38→19:42)
[2023-04-23] MEDS: MEROPENEM 1GM IVPB 100 ML IV SCH ×2 (04:52→12:54)
[2023-04-23] MEDS: LEVOTHYROXINE SODIUM 50 MCG TAB PO SCH ×2 (05:55→10:47)
[2023-04-23] MEDS ORDERED: LIDOCAINE 1% HCL (LOCAL ANESTH.) INJ 20ML MDV ONE (06:41)
[2023-04-23] MEDS ORDERED: BUPIVACAINE HCL 50 ML ONE (06:41)
[2023-04-23] MEDS ORDERED: VANCOMYCIN HCL 1000 MG VL ONE (06:42)
[2023-04-23] MEDS ORDERED: PROPOFOL 10 MG/ML 20 ML IV ONE (07:13)
[2023-04-23] MEDS ORDERED: fentaNYL CITRATE 100 MCG/2 ML VL ONE (07:14)
[2023-04-23] MEDS ORDERED: ONDANSETRON HCL 4 MG/2 ML VIAL ONE (07:36)
[2023-04-23] MEDS ORDERED: hydrALAZINE HCL 20 MG/ML VL ONE (07:41)
[2023-04-23] MEDS ORDERED: LIDOCAINE HCL (LOCAL ANESTH.) 0.5 % 50ML MDV IJ ONE (07:54)
[2023-04-23] MEDS ORDERED: BUPIVACAINE 0.5% MPF INJ 30ML SDV IJ ONE (07:56)
[2023-04-23] MEDS ORDERED: hydrALAZINE HCL 20 MG/ML VL IV PRN (08:30)
[2023-04-23] MEDS ORDERED: ONDANSETRON HCL 4 MG/2 ML VIAL IV PRN (08:30)
[2023-04-23] MEDS: POTASSIUM CHL 20 Meq TABLET PO SCH (10:47)
[2023-04-23] MEDS: SERTRALINE HCL 50 MG TAB PO SCH ×2 (10:48→21:48)
[2023-04-23] MEDS: CARVEDILOL 3.125 MG TAB PO SCH ×2 (10:48→21:49)
[2023-04-23] MEDS: SPIRONOLACTONE 25 MG TAB PO SCH (10:49)
[2023-04-23] MEDS: FUROSEMIDE 40 MG TAB PO SCH (10:49)
[2023-04-23] MEDS: hydrOXYchloroQUINE SULFATE 200 MG TAB PO SCH ×2 (10:49→21:48)
[2023-04-23 10:57] LABS: Anion Gap 12 (5-15); Carbon Dioxide 22 mmol/L (20-30); Potassium 2.9 mmol/L (3.5-5.1); Sodium 143 mmol/L (136-145)
[2023-04-23 10:58] LABS: Calcium 7.8 mg/dL (8.5-10.1)
[2023-04-23 11:00] LABS: Chloride 109 mmol/L (98-107)
[2023-04-23 11:02] LABS: BUN/Creatinine Ratio 32.7 (10.0-20.0); Blood Urea Nitrogen 16 mg/dL (9-23); Glucose 275 mg/dL (74-106)
[2023-04-23 11:12] LABS: Basophils # (auto) 0 10 ^3/uL (0-0.2); Basophils % (auto) 0.3 % (0.0-2.0); Eosinophils # (auto) 0 10 ^3/uL (0-0.8); Hematocrit 38.3 % (36.0-46.0); Hemoglobin 12.9 g/dL (12.2-16.2); Lymphocytes # (auto) 1.4 10 ^3/uL (0.4-5.4); Mean Corpuscular Hemoglobin 29.1 pg (28.0-32.0); Mean Corpuscular Hgb Conc. 33.6 g/dL (32.0-36.0); Mean Corpuscular Volume 86.7 fL (80.0-100.0); Monocytes # (auto) 1.1 10 ^3/uL (0-1.3); Neutrophils # (auto) 15.4 10 ^3/uL (1.6-8.6); Neutrophils % (auto) 85.7 % (37.0-80.0); Red Blood Cells 4.42 10^6/uL (4.0-5.20); Red Cell Distribution Width 13.2 % (11.8-14.3)
[2023-04-23] MEDS: LOPERAMIDE HCL 2 MG CAP/TAB PO PRN (12:58)
[2023-04-23] MEDS ORDERED: POTASSIUM EFFERVESENT TAB 25 MEQ PO ONE (14:45)
[2023-04-23] MEDS: CEFEPIME 2GM/50ML NS 50 ML IV SCH ×2 (15:05→21:50)
[2023-04-23] MEDS: fentaNYL 25MCG/HR 25 MCG/HR PAT TD SCH (15:15)
[2023-04-23] MEDS: hydrOXYzine 25 MG TAB or CAP PO SCH (21:48)
[2023-04-23] MEDS: VERAPAMIL HCL 180mg SR tab PO SCH (21:49)
[2023-04-24] VITALS (8 sets, daily range): BP systolic 136–164; BP diastolic 73–102; PULSE 81–91; RESP 16–18; TEMP 98–98.4; O2SAT 93–98
[2023-04-24] MEDS: VANCOMYCIN 1GM/200ML 250 ML IV SCH ×2 (05:33→20:53)
[2023-04-24] MEDS: CEFEPIME 2GM/50ML NS 50 ML IV SCH ×3 (06:54→21:14)
[2023-04-24 07:27] LABS: Basophils # (auto) 0 10 ^3/uL (0-0.2); Basophils % (auto) 0.8 % (0.0-2.0); Eosinophils # (auto) 0.3 10 ^3/uL (0-0.8); Eosinophils % (auto) 5.6 % (0.0-7.0); Hematocrit 37.8 % (36.0-46.0); Hemoglobin 12.5 g/dL (12.2-16.2); Lymphocytes # (auto) 1.4 10 ^3/uL (0.4-5.4); Lymphocytes % (auto) 23.6 % (10.0-50.0); Mean Corpuscular Hemoglobin 27.8 pg (28.0-32.0); Mean Corpuscular Volume 84.2 fL (80.0-100.0); Monocytes # (auto) 0.6 10 ^3/uL (0-1.3); Monocytes % (auto) 10.3 % (0.0-12.0); Neutrophils # (auto) 3.5 10 ^3/uL (1.6-8.6); Neutrophils % (auto) 59.7 % (37.0-80.0); Nucleated Red Blood Cells % 0.1 %; Red Blood Cells 4.48 10^6/uL (4.0-5.20); Red Cell Distribution Width 14.8 % (11.8-14.3); White Blood Cell 5.8 10^3/uL (4.4-10.8)
[2023-04-24] MEDS: CARVEDILOL 3.125 MG TAB PO SCH ×2 (09:36→21:13)
[2023-04-24] MEDS: LEVOTHYROXINE SODIUM 50 MCG TAB PO SCH (09:36)
[2023-04-24] MEDS: POTASSIUM CHL 20 Meq TABLET PO SCH ×2 (09:37→14:52)
[2023-04-24] MEDS: hydrOXYchloroQUINE SULFATE 200 MG TAB PO SCH ×2 (09:37→21:13)
[2023-04-24] MEDS: SERTRALINE HCL 50 MG TAB PO SCH ×2 (09:38→21:08)
[2023-04-24] MEDS: SPIRONOLACTONE 25 MG TAB PO SCH (09:38)
[2023-04-24] MEDS: IBUPROFEN 400 MG TAB PO PRN (09:42)
[2023-04-24] MEDS ORDERED: CEFTRIAXONE SODIUM 2 GM in D5W 5% 100 ML IV SCH (10:00)
[2023-04-24] MEDS: FUROSEMIDE 40 MG TAB PO SCH (10:00)
[2023-04-24] MEDS ORDERED: POTASSIUM EFFERVESENT TAB 25 MEQ PO ONE (14:15)
[2023-04-24] MEDS: hydrOXYzine 25 MG TAB or CAP PO SCH (21:08)
[2023-04-24] MEDS: VERAPAMIL HCL 180mg SR tab PO SCH (21:15)
[2023-04-25] VITALS (7 sets, daily range): BP systolic 110–162; BP diastolic 63–94; PULSE 76–84; RESP 18–21; TEMP 98–98.9; O2SAT 90–99
[2023-04-25] MEDS: CEFEPIME 2GM/50ML NS 50 ML IV SCH ×3 (05:14→21:53)
[2023-04-25 07:58] LABS: Calcium 9.2 mg/dL (8.5-10.1); Chloride 105 mmol/L (98-107); Potassium 3.2 mmol/L (3.5-5.1); Sodium 138 mmol/L (136-145)
[2023-04-25 07:59] LABS: Anion Gap 5 (5-15); Carbon Dioxide 28 mmol/L (20-30)
[2023-04-25 08:04] LABS: BUN/Creatinine Ratio 13.3 (10.0-20.0); Blood Urea Nitrogen 8 mg/dL (9-23); Glucose 86 mg/dL (74-106)
[2023-04-25 08:10] LABS: Basophils # (auto) 0.1 10 ^3/uL (0-0.2); Basophils % (auto) 0.8 % (0.0-2.0); Eosinophils # (auto) 0.7 10 ^3/uL (0-0.8); Eosinophils % (auto) 9.4 % (0.0-7.0); Hematocrit 38.9 % (36.0-46.0); Hemoglobin 12.7 g/dL (12.2-16.2); Lymphocytes # (auto) 1.3 10 ^3/uL (0.4-5.4); Lymphocytes % (auto) 19.4 % (10.0-50.0); Mean Corpuscular Hemoglobin 27.4 pg (28.0-32.0); Mean Corpuscular Hgb Conc. 32.6 g/dL (32.0-36.0); Monocytes # (auto) 0.6 10 ^3/uL (0-1.3); Monocytes % (auto) 8.2 % (0.0-12.0); Neutrophils # (auto) 4.3 10 ^3/uL (1.6-8.6); Neutrophils % (auto) 62.2 % (37.0-80.0); Nucleated Red Blood Cells % 0.2 %; Red Blood Cells 4.63 10^6/uL (4.0-5.20); Red Cell Distribution Width 14.5 % (11.8-14.3)
[2023-04-25] MEDS: SPIRONOLACTONE 25 MG TAB PO SCH (09:59)
[2023-04-25] MEDS: SERTRALINE HCL 50 MG TAB PO SCH ×2 (09:59→21:55)
[2023-04-25] MEDS: FUROSEMIDE 40 MG TAB PO SCH (09:59)
[2023-04-25] MEDS: hydrOXYchloroQUINE SULFATE 200 MG TAB PO SCH ×2 (10:00→21:53)
[2023-04-25] MEDS: CARVEDILOL 3.125 MG TAB PO SCH ×2 (10:00→21:54)
[2023-04-25] MEDS ORDERED: POTASSIUM EFFERVESENT TAB 25 MEQ PO ONE (10:00)
[2023-04-25] MEDS: POTASSIUM CHL 20 Meq TABLET PO SCH (10:12)
[2023-04-25] MEDS: VANCOMYCIN 1GM/200ML 250 ML IV SCH (12:00)
[2023-04-25 12:13] LABS: INR 1.14 (0.9-1.15); Partial Thromboplastin Time 31.3 SEC (24.5-34.5); Prothrombin Time 11.9 sec (9.3-11.8)
[2023-04-25] MEDS: IBUPROFEN 400 MG TAB PO PRN (16:57)
[2023-04-25] MEDS: hydrOXYzine 25 MG TAB or CAP PO SCH (21:54)
[2023-04-25] MEDS: VERAPAMIL HCL 180mg SR tab PO SCH (21:55)
[2023-04-26] VITALS (7 sets, daily range): BP systolic 124–156; BP diastolic 77–88; PULSE 72–80; RESP 16–18; TEMP 97.5–98.7; O2SAT 96–100
[2023-04-26] MEDS: VANCOMYCIN 1GM/200ML 250 ML IV SCH ×2 (00:02→14:59)
[2023-04-26] MEDS: LEVOTHYROXINE SODIUM 50 MCG TAB PO SCH (06:08)
[2023-04-26] MEDS: CEFEPIME 2GM/50ML NS 50 ML IV SCH (06:09)
[2023-04-26] MEDS ORDERED: CEFTRIAXONE SODIUM 2 GM in D5W 5% 100 ML IV ONE (10:45)
[2023-04-26] MEDS ORDERED: LIDOCAINE 1% (LOCAL ANESTH.) PF 5ml SDV ID ONE (11:00)
[2023-04-26] MEDS: CARVEDILOL 3.125 MG TAB PO SCH ×2 (11:08→21:43)
[2023-04-26] MEDS: hydrOXYchloroQUINE SULFATE 200 MG TAB PO SCH ×2 (11:08→21:43)
[2023-04-26] MEDS: SERTRALINE HCL 50 MG TAB PO SCH ×2 (11:08→21:41)
[2023-04-26] MEDS: FUROSEMIDE 40 MG TAB PO SCH (11:09)
[2023-04-26] MEDS: POTASSIUM CHL 20 Meq TABLET PO SCH (11:09)
[2023-04-26] MEDS: SPIRONOLACTONE 25 MG TAB PO SCH (11:13)
[2023-04-26] MEDS: hydrALAZINE HCL 20 MG/ML VL IV PRN (17:28)
[2023-04-26] MEDS: VERAPAMIL HCL 180mg SR tab PO SCH (21:40)
[2023-04-26] MEDS: hydrOXYzine 25 MG TAB or CAP PO SCH (21:42)
[2023-04-26] MEDS: IBUPROFEN 400 MG TAB PO PRN (21:50)
[2023-04-26] MEDS: SODIUM CHLOR 0.9% PF (SALINE LOCK) 10ML VIAL/SYR IV SCH (21:58)
[2023-04-27] MEDS: VANCOMYCIN 1GM/200ML 250 ML IV SCH ×2 (03:47→14:09)
[2023-04-27] MEDS: hydrALAZINE HCL 20 MG/ML VL IV PRN (05:30)
[2023-04-27 05:45] VITALS: BP 178/97; PULSE 76; RESP 18; O2SAT 96
[2023-04-27] MEDS: LEVOTHYROXINE SODIUM 50 MCG TAB PO SCH (06:28)
[2023-04-27 08:00] VITALS: PULSE 78; RESP 18
[2023-04-27 09:00] VITALS: BP_SYST 101; BP_SYST 160; BP_DIAS 58; BP_DIAS 94; PULSE 85; PULSE 92; RESP 17; RESP 19; TEMP 97.8; TEMP 98.5; O2SAT 95; O2SAT 96
[2023-04-27] MEDS ORDERED: CEFTRIAXONE SODIUM 2 GM in D5W 5% 100 ML IV SCH (10:00)
[2023-04-27] MEDS: SODIUM CHLOR 0.9% PF (SALINE LOCK) 10ML VIAL/SYR IV SCH (10:36)
[2023-04-27] MEDS: FUROSEMIDE 40 MG TAB PO SCH (10:37)
[2023-04-27] MEDS: CARVEDILOL 3.125 MG TAB PO SCH (10:37)
[2023-04-27] MEDS: hydrOXYchloroQUINE SULFATE 200 MG TAB PO SCH (10:37)
[2023-04-27] MEDS: POTASSIUM CHL 20 Meq TABLET PO SCH (10:38)
[2023-04-27] MEDS: SPIRONOLACTONE 25 MG TAB PO SCH (10:38)
[2023-04-27 10:49] VITALS: BP 101/58; PULSE 85; RESP 17; TEMP 98.5; O2SAT 96
[2023-04-27] MEDS: SERTRALINE HCL 50 MG TAB PO SCH (12:25)
[2023-04-27 13:27] VITALS: BP_SYST 104; BP_SYST 161; BP_DIAS 105; BP_DIAS 57; PULSE 72; PULSE 82; RESP 18; RESP 20; TEMP 98.2; TEMP 98.5; O2SAT 91; O2SAT 93
== END 2023-04-27 15:35 | disposition home health service (06) | DRG 721 ==
LOC: ER 16:14 → OVERFLOW 21:04 → WEST WING 23:45 → EAST 04-22 14:28
PROVIDERS: ADMIT Nurse Practitioner Family; ATTEND Internal Medicine
PROC: 0QBN0ZX Excision of Right Metatarsal, Open Approach, Diagnostic (ICD-10-PCS; 2023-04-23)
PROC: 02HV33Z Insertion of Infusion Device into Superior Vena Cava, Percutaneous Approach (ICD-10-PCS; principal; 2023-04-26)
PROC: B548ZZA Ultrasonography of Superior Vena Cava, Guidance (ICD-10-PCS; 2023-04-26)
DX: T81.40XA Infection following a procedure, unspecified, initial encounter (principal); I50.43 Acute on chronic combined systolic (congestive) and diastolic (congestive) heart failure; A41.9 Sepsis, unspecified organism; E87.1 Hypo-osmolality and hyponatremia; L97.509 Non-pressure chronic ulcer of other part of unspecified foot with unspecified severity; M86.8X7 Other osteomyelitis, ankle and foot; I11.0 Hypertensive heart disease with heart failure; L03.115 Cellulitis of right lower limb; M14.671 Charcot's joint, right ankle and foot; M19.90 Unspecified osteoarthritis, unspecified site; E87.6 Hypokalemia; E03.9 Hypothyroidism, unspecified; L97.519 Non-pressure chronic ulcer of other part of right foot with unspecified severity; E66.9 Obesity, unspecified; F32.A Depression, unspecified; J45.909 Unspecified asthma, uncomplicated; Z88.8 Allergy status to other drugs, medicaments and biological substances; Z68.34 Body mass index [BMI] 34.0-34.9, adult; Z82.49 Family history of ischemic heart disease and other diseases of the circulatory system; Z98.1 Arthrodesis status
CPT/HCPCS: 36415; 36569; 71045; 73620; 73700; 73718; 78315; 80048; 80053; 80202; 81001; 83605; 83735; 84132; 85025; 85610; 85730; 87040; 87070; 87075; 87081; 87205; 93005; 93306; G0378; J0692; J0696; J2001; J2185; J2405; J2543; J2704; J3490; J7060

== ENCOUNTER → 2023-08-05 | Outpatient (CLI) | payer MEDICAID ==
[~2023-08-05] MED LIST changes: +FENT12DI TOP; +SODIUM CHLOR 0.9% PF (SALINE LOCK) 10ML VIAL/SYR IV SCH
[2023-08-05] MEDS: LIDOCAINE 1% (LOCAL ANESTH.) PF 5ml SDV ID ONE (17:30)
== END | disposition home or self-care (01) ==
LOC: XYW 15:24
PROVIDERS: ATTEND Podiatrist
DX: Z45.2 Encounter for adjustment and management of vascular access device (principal); I50.9 Heart failure, unspecified; M19.071 Primary osteoarthritis, right ankle and foot; F41.9 Anxiety disorder, unspecified; F32.A Depression, unspecified; Z93.0 Tracheostomy status; Z82.49 Family history of ischemic heart disease and other diseases of the circulatory system; Z87.891 Personal history of nicotine dependence
CPT/HCPCS: 36569; 71045; C1751; J7050

== ENCOUNTER → 2023-08-05 | Outpatient (CLI) | payer MEDICAID ==
[~2023-08-05] MED LIST changes: -SODIUM CHLOR 0.9% PF (SALINE LOCK) 10ML VIAL/SYR IV SCH
[2023-08-05 15:55] LABS: Hemoglobin 13.1 g/dL (12.2-16.2); White Blood Cell 7.3 10^3/uL (4.4-10.8)
[2023-08-05 15:57] LABS: Mean Corpuscular Hemoglobin 26.4 pg (28.0-32.0); Mean Corpuscular Hgb Conc. 33.5 g/dL (32.0-36.0); Mean Corpuscular Volume 78.7 fL (80.0-100.0); Red Blood Cells 4.96 10^6/uL (4.0-5.20); Red Cell Distribution Width 14.6 % (11.8-14.3)
[2023-08-05 16:04] LABS: Band Neutrophils % (manual) 0; Basophils % (manual) 0 (0.0-2.0); Blast Cells 0; Metamyelocytes % 0; Myelocytes % 0; Promyelocytes % 0
[2023-08-05 16:25] LABS: INR 1.11 (0.9-1.15); Partial Thromboplastin Time 32.1 SEC (24.5-34.5); Prothrombin Time 11.6 sec (9.3-11.8)
[2023-08-05 19:27] LABS: Anisocytosis Slight; Eosinophils % (manual) 5 (0-7); Lymphocytes % (manual) 21 (10.0-50.0); Monocytes % (manual) 13 (0-12); Platelet Estimate Adequate; Reactive Lymphocytes 2
[2023-08-05 19:28] LABS: Large Platelets FEW
== END | disposition home or self-care (01) ==
LOC: LAB 15:38
PROVIDERS: ATTEND Podiatrist
DX: E11.42 Type 2 diabetes mellitus with diabetic polyneuropathy (principal)
CPT/HCPCS: 36415; 85007; 85027; 85610; 85730

== ENCOUNTER 2023-10-11 20:18 | Emergency (ER) | payer MEDICAID ==
[~2023-10-11] VITALS: Ht 157.5 cm; Wt 65.0 kg
[~2023-10-11 20:18] MED LIST changes: -HYDR-4188 OR; +HYDR-4491 OR
[2023-10-11 23:32] VITALS: BP 147/84; PULSE 66; RESP 16; TEMP 98; O2SAT 93
== END 2023-10-11 23:32 | disposition home or self-care (01) ==
LOC: ER 20:18
DX: M79.671 Pain in right foot (principal); I11.0 Hypertensive heart disease with heart failure; I50.9 Heart failure, unspecified; J45.909 Unspecified asthma, uncomplicated; M19.90 Unspecified osteoarthritis, unspecified site; Z98.890 Other specified postprocedural states; Z88.8 Allergy status to other drugs, medicaments and biological substances; Z79.899 Other long term (current) drug therapy
CPT/HCPCS: 73630

== ENCOUNTER 2023-10-15 11:11 | Inpatient (IN) | payer MEDICAID ==
[~2023-10-15] VITALS: Ht 157.5 cm; Wt 90.0 kg
[~2023-10-15 11:11] MED LIST changes: +BENZ100C97 PO; +FLUC200T50 PO; -HYDR-4491 OR; +HYDR-4491 PO; +PRED20TA2 PO
[2023-10-15 12:14] VITALS: BP 140/72; PULSE 69; RESP 17; TEMP 98.2; O2SAT 93
[2023-10-15 12:37] VITALS: O2SAT 98
[2023-10-15] MEDS ORDERED: GABA-339 PO (14:00)
[2023-10-15] MEDS ORDERED: NITROGLYCERIN 0.4 MG SL TAB SL PRN (14:15)
[2023-10-15] MEDS ORDERED: MORPHINE SULFATE INJ 2 MG/ml SYRG IV PRN (14:15)
[2023-10-15] MEDS ORDERED: ALBUTEROL MEDNEB 2.5 mg/3ml NEB NEB PRN (15:00)
[2023-10-15 17:00] VITALS: BP 143/55; PULSE 65; RESP 17; TEMP 98.3; O2SAT 95
[2023-10-15] MEDS ORDERED: VANCOMYCIN PER PHARMACY 0 MG IV SCH (17:15)
[2023-10-15] MEDS ORDERED: PATIENTS OWN MEDICATION (Albuterol Sulfate 1 VIAL) NEB SCH (18:00)
[2023-10-15 18:22] LABS: Alanine Aminotransferase 22 U/L (7-40); Albumin 4.3 g/dL (3.2-4.8); Alkaline Phosphatase 115 U/L (46-116); Anion Gap 2 (5-15); Aspartate Aminotransferase 22 U/L (13-40); BUN/Creatinine Ratio 13.1 (10.0-20.0); Blood Urea Nitrogen 8 mg/dL (9-23); Calcium 9.7 mg/dL (8.5-10.1); Carbon Dioxide 34 mmol/L (20-30); Chloride 97 mmol/L (98-107); Cholesterol 148 mg/dL (< 200); Glucose 93 mg/dL (74-106); HDL Cholesterol 40 mg/dL (40-59); LDL Cholesterol 95 mg/dL (< 100); Magnesium 2.2 mg/dL (1.6-2.6); Potassium 3.6 mmol/L (3.5-5.1); Sodium 133 mmol/L (136-145); Triglycerides 118 mg/dL (< 150)
[2023-10-15 18:23] LABS: Bilirubin, Total 0.2 mg/dL (0.2-1.0); Phosphorus 4.1 mg/dL (2.4-5.1); Total Protein 6.1 g/dL (5.7-8.2)
[2023-10-15 18:27] LABS: INR 1.11 (0.9-1.15); Partial Thromboplastin Time 31.8 SEC (24.5-34.5); Prothrombin Time 11.7 sec (9.3-11.8)
[2023-10-15 18:31] LABS: CRP High Sensitivity 1.03 mg/dL (<1.0)
[2023-10-15] MEDS: VANCOMYCIN 1GM/200ML 200 ML IV ONE (18:34)
[2023-10-15 18:46] LABS: Lipase 18 U/L (12-53)
[2023-10-15 18:48] LABS: Urine Bacteria None Seen /hpf (None Seen)
[2023-10-15 19:19] LABS: Urine Blood Negative /uL (Negative); Urine Clarity Clear (Clear); Urine Color Yellow (Yellow); Urine Protein, UAD Negative (Negative); Urine Specific Gravity 1.008 (1.001-1.035); Urine Urobilinogen Normal (Negative); Urine WBC 4 /hpf (0 - 5); Urine pH 7.5 (5.0-9.0)
[2023-10-15 19:21] LABS: Amphetamine Screen, Urine Neg (NEGATIVE); Benzodiazephine Screen, Urine Neg (NEGATIVE)
[2023-10-15 19:22] LABS: Barbiturate Scree,Urine Neg (NEGATIVE); Cannabinoid Screen, Urine Neg (NEGATIVE); Cocaine Screen, Urine Neg (NEGATIVE); Opiate Scree,Urine Neg (NEGATIVE); Phencyclidine Screen, Urine Neg (NEGATIVE)
[2023-10-15 19:48] LABS: Basophils # (auto) 0.1 10 ^3/uL (0-0.2); Eosinophils # (auto) 0.3 10 ^3/uL (0-0.8); Lymphocytes # (auto) 1.3 10 ^3/uL (0.4-5.4); Mean Corpuscular Hemoglobin 25.1 pg (28.0-32.0); Monocytes # (auto) 0.9 10 ^3/uL (0-1.3); Neutrophils # (auto) 3.2 10 ^3/uL (1.6-8.6); Nucleated Red Blood Cells % 0.1 %; White Blood Cell 5.8 10^3/uL (4.4-10.8)
[2023-10-15 19:49] LABS: Basophils % (auto) 1.2 % (0.0-2.0); Eosinophils % (auto) 5.5 % (0.0-7.0); Hemoglobin 10.8 g/dL (12.2-16.2); Lymphocytes % (auto) 22.8 % (10.0-50.0); Mean Corpuscular Hgb Conc. 32.8 g/dL (32.0-36.0); Mean Corpuscular Volume 76.7 fL (80.0-100.0); Monocytes % (auto) 15.6 % (0.0-12.0); Neutrophils % (auto) 54.9 % (37.0-80.0); Red Cell Distribution Width 14.5 % (11.8-14.3)
[2023-10-15 20:00] VITALS: PULSE 80; RESP 19; O2SAT 98
[2023-10-15 21:24] VITALS: BP 159/88; PULSE 80; RESP 19; TEMP 98.4; O2SAT 98
[2023-10-15 21:47] VITALS: BP 159/88; PULSE 80; RESP 19; TEMP 98.4; O2SAT 98
[2023-10-15] MEDS ORDERED: PATIENTS OWN MEDICATION (Sertraline Hcl 100 MG) PO SCH (22:00)
[2023-10-15] MEDS ORDERED: PATIENTS OWN MEDICATION (Gabapentin 1 TAB) PO SCH (22:00)
[2023-10-15] MEDS: DAKINS QUARTER STR 0.125% (NaHypochlorite) 473 ML TOPICAL SOL TOP SCH (22:00)
[2023-10-15] MEDS: CEFEPIME 1GM/ 50ML 50 ML IV SCH (22:10)
[2023-10-15] MEDS: DOCUSATE SOD 100 MG CAP PO SCH (22:11)
[2023-10-15] MEDS: GABAPENTIN 300 MG CAP PO SCH (22:12)
[2023-10-15] MEDS: CARVEDILOL 3.125 MG TAB PO SCH (22:12)
[2023-10-15] MEDS: hydrOXYchloroQUINE SULFATE 200 MG TAB PO SCH (22:50)
[2023-10-15] MEDS: SERTRALINE HCL 50 MG TAB PO SCH (22:50)
[2023-10-16] VITALS (9 sets, daily range): BP systolic 126–166; BP diastolic 75–89; PULSE 68–80; RESP 16–20; TEMP 96.3–98.3; O2SAT 92–98
[2023-10-16] MEDS: VANCOMYCIN 1GM/200ML 200 ML IV SCH (04:05)
[2023-10-16 05:42] LABS: Basophils # (auto) 0 10 ^3/uL (0-0.2); Basophils % (auto) 0.9 % (0.0-2.0); Eosinophils # (auto) 0.3 10 ^3/uL (0-0.8); Eosinophils % (auto) 7.1 % (0.0-7.0); Hematocrit 32.1 % (36.0-46.0); Hemoglobin 10.6 g/dL (12.2-16.2); Lymphocytes # (auto) 1.3 10 ^3/uL (0.4-5.4); Mean Corpuscular Hemoglobin 25.3 pg (28.0-32.0); Mean Corpuscular Hgb Conc. 32.9 g/dL (32.0-36.0); Mean Corpuscular Volume 76.9 fL (80.0-100.0); Monocytes # (auto) 0.8 10 ^3/uL (0-1.3); Monocytes % (auto) 16.9 % (0.0-12.0); Neutrophils # (auto) 2.4 10 ^3/uL (1.6-8.6); Neutrophils % (auto) 49.1 % (37.0-80.0); Nucleated Red Blood Cells % 0.1 %; Red Blood Cells 4.18 10^6/uL (4.0-5.20); Red Cell Distribution Width 14.5 % (11.8-14.3); White Blood Cell 4.9 10^3/uL (4.4-10.8)
[2023-10-16] MEDS: LEVOTHYROXINE SODIUM 100 MCG TAB PO SCH (05:43)
[2023-10-16] MEDS: LEVOTHYROXINE SODIUM 50 MCG TAB PO SCH (05:44)
[2023-10-16 06:02] LABS: Alanine Aminotransferase 19 U/L (7-40); Albumin 3.8 g/dL (3.2-4.8); Alkaline Phosphatase 98 U/L (46-116); Anion Gap 6 (5-15); Aspartate Aminotransferase 20 U/L (13-40); Bilirubin, Total 0.3 mg/dL (0.2-1.0); Calcium 9.4 mg/dL (8.7-10.4); Carbon Dioxide 30 mmol/L (20-30); Chloride 99 mmol/L (98-107); Glucose 89 mg/dL (74-106); Phosphorus 4.2 mg/dL (2.4-5.1); Potassium 3.3 mmol/L (3.5-5.1); Sodium 135 mmol/L (136-145)
[2023-10-16 06:03] LABS: Total Protein 5.4 g/dL (5.7-8.2)
[2023-10-16 06:09] LABS: BUN/Creatinine Ratio 14.7 (10.0-20.0); Blood Urea Nitrogen 10 mg/dL (9-23)
[2023-10-16] MEDS ORDERED: PATIENTS OWN MEDICATION (Hydroxyzine Hcl 25 MG) PO SCH (10:00)
[2023-10-16] MEDS ORDERED: PATIENTS OWN MEDICATION (Levothyroxine Sodium 150 MCG) PO SCH (10:00)
[2023-10-16] MEDS: ENOXAPARIN SOD 40 MG/0.4 ML SYRINGE SC SCH (10:08)
[2023-10-16] MEDS: VERAPAMIL HCL 120 mg ER tab PO SCH (10:09)
[2023-10-16] MEDS: CHOLECALCIFEROL (VITD3) 1,000UNIT=25mCg TAB PO SCH (10:09)
[2023-10-16] MEDS: SPIRONOLACTONE 25 MG TAB PO SCH (10:09)
[2023-10-16] MEDS: hydrOXYzine 25 MG TAB or CAP PO SCH (10:10)
[2023-10-16] MEDS: FUROSEMIDE 20 MG TAB PO SCH (10:10)
[2023-10-16] MEDS: DOCUSATE SOD 100 MG CAP PO SCH (10:30)
[2023-10-16] MEDS: FLUTICASONE PROP NASAL SPR 0.05 % (50MCG) 16GM SCH (12:09)
[2023-10-16] MEDS: LIDOCAINE 5% TOPICAL PATCH TOP SCH (12:37)
[2023-10-17] VITALS (9 sets, daily range): BP systolic 133–185; BP diastolic 60–94; PULSE 63–80; RESP 16–20; TEMP 97.4–98.5; O2SAT 91–98
[2023-10-17] MEDS: LIDOCAINE 5% TOPICAL PATCH TOP SCH (02:12)
[2023-10-17] MEDS: fentaNYL 25MCG/HR 25 MCG/HR PAT TD SCH (05:55)
[2023-10-17] MEDS: CYCLOBENZAPRINE HCL 10 MG TAB PO PRN (13:29)
[2023-10-18] VITALS (10 sets, daily range): BP systolic 156–170; BP diastolic 77–101; PULSE 71–82; RESP 16–18; TEMP 97.6–98.9; O2SAT 94–99
[2023-10-18] MEDS: IBUPROFEN 400 MG TAB PO PRN (11:27)
[2023-10-18] MEDS: POTASSIUM CHL 20 Meq TABLET PO ONE (14:25)
[2023-10-18] MEDS ORDERED: CARV12.544 PO (14:30)
[2023-10-18] MEDS ORDERED: CHOL100083 PO (14:41)
[2023-10-18] MEDS ORDERED: ALBU108A5 INH (14:41)
[2023-10-18] MEDS ORDERED: CYCL-839 PO (14:41)
[2023-10-18] MEDS ORDERED: POTA-36 PO (14:41)
[2023-10-18] MEDS ORDERED: TRIA75TA55 PO (14:41)
[2023-10-18] MEDS ORDERED: ZOFR4T PO (14:41)
[2023-10-18] MEDS ORDERED: SENN-58 PO (14:41)
[2023-10-18] MEDS: CHOLECALCIFEROL (VITD3) 1,000UNIT=25mCg TAB PO SCH (21:01)
[2023-10-19] VITALS (10 sets, daily range): BP systolic 148–189; BP diastolic 85–99; PULSE 71–87; RESP 16–18; TEMP 97.7–98.7; O2SAT 91–97
[2023-10-19 06:56] LABS: Chloride 108 mmol/L (98-107); Eosinophils # (auto) 0.4 10 ^3/uL (0-0.8); Hemoglobin 11.2 g/dL (12.2-16.2); Lymphocytes # (auto) 1.1 10 ^3/uL (0.4-5.4); Potassium 4.5 mmol/L (3.5-5.1); Sodium 138 mmol/L (136-145)
[2023-10-19 06:57] LABS: Anion Gap 4 (5-15); Carbon Dioxide 26 mmol/L (20-30)
[2023-10-19 06:58] LABS: Calcium 9.7 mg/dL (8.7-10.4)
[2023-10-19 06:59] LABS: Basophils # (auto) 0 10 ^3/uL (0-0.2); Basophils % (auto) 0.7 % (0.0-2.0); Eosinophils % (auto) 9.3 % (0.0-7.0); Hematocrit 34.6 % (36.0-46.0); Lymphocytes % (auto) 24.3 % (10.0-50.0); Mean Corpuscular Hemoglobin 25.1 pg (28.0-32.0); Mean Corpuscular Hgb Conc. 32.5 g/dL (32.0-36.0); Mean Corpuscular Volume 77.4 fL (80.0-100.0); Monocytes # (auto) 0.6 10 ^3/uL (0-1.3); Monocytes % (auto) 13.5 % (0.0-12.0); Neutrophils # (auto) 2.5 10 ^3/uL (1.6-8.6); Neutrophils % (auto) 52.2 % (37.0-80.0); Red Blood Cells 4.47 10^6/uL (4.0-5.20); Red Cell Distribution Width 14.4 % (11.8-14.3); White Blood Cell 4.7 10^3/uL (4.4-10.8)
[2023-10-19 07:02] LABS: BUN/Creatinine Ratio 13.3 (10.0-20.0); Blood Urea Nitrogen 8 mg/dL (9-23); Glucose 88 mg/dL (74-106)
[2023-10-19] MEDS: FLUCONAZOLE 200MG/100ML 100 ML IV ONE (14:46)
[2023-10-19 16:54] LABS: Urine Bacteria FEW /hpf (None Seen); Urine Blood Negative /uL (Negative); Urine Clarity Turbid (Clear); Urine Color Light-Yellow (Yellow); Urine Protein, UAD Negative (Negative); Urine Urobilinogen Normal (Negative); Urine WBC 9 /hpf (0 - 5)
[2023-10-19] MEDS: hydrALAZINE HCL 20 MG/ML VL IV PRN (21:20)
[2023-10-20] VITALS (11 sets, daily range): BP systolic 126–175; BP diastolic 58–91; PULSE 20–89; RESP 17–20; TEMP 97.8–98.8; O2SAT 94–99
[2023-10-20] MEDS: cloNIDine HCL 0.1 MG TAB PO ONE (03:36)
[2023-10-20 07:27] LABS: Basophils # (auto) 0 10 ^3/uL (0-0.2); Basophils % (auto) 0.8 % (0.0-2.0); Eosinophils # (auto) 0.5 10 ^3/uL (0-0.8); Eosinophils % (auto) 8.6 % (0.0-7.0); Hematocrit 33.1 % (36.0-46.0); Hemoglobin 10.8 g/dL (12.2-16.2); Lymphocytes # (auto) 1.1 10 ^3/uL (0.4-5.4); Lymphocytes % (auto) 20.5 % (10.0-50.0); Mean Corpuscular Hemoglobin 25.1 pg (28.0-32.0); Mean Corpuscular Hgb Conc. 32.5 g/dL (32.0-36.0); Mean Corpuscular Volume 77.3 fL (80.0-100.0); Monocytes # (auto) 0.6 10 ^3/uL (0-1.3); Neutrophils # (auto) 3.2 10 ^3/uL (1.6-8.6); Neutrophils % (auto) 59.1 % (37.0-80.0); Nucleated Red Blood Cells % 0.1 %; Red Blood Cells 4.29 10^6/uL (4.0-5.20); Red Cell Distribution Width 14.7 % (11.8-14.3); White Blood Cell 5.5 10^3/uL (4.4-10.8)
[2023-10-20 07:38] LABS: Alanine Aminotransferase 19 U/L (7-40); Albumin 3.6 g/dL (3.2-4.8); Alkaline Phosphatase 97 U/L (46-116); Anion Gap 6 (5-15); Aspartate Aminotransferase 19 U/L (13-40); BUN/Creatinine Ratio 16.1 (10.0-20.0); Blood Urea Nitrogen 10 mg/dL (9-23); Calcium 9.6 mg/dL (8.5-10.1); Carbon Dioxide 26 mmol/L (20-30); Chloride 106 mmol/L (98-107); Glucose 90 mg/dL (74-106); Magnesium 2.2 mg/dL (1.6-2.6); Potassium 4.1 mmol/L (3.5-5.1); Sodium 138 mmol/L (136-145)
[2023-10-20 07:39] LABS: Bilirubin, Total 0.2 mg/dL (0.2-1.0); Phosphorus 4.1 mg/dL (2.4-5.1); Total Protein 6.1 g/dL (5.7-8.2)
[2023-10-20] MEDS ORDERED: FLUCONAZOLE 200MG/100ML 100 ML IV SCH (10:00)
[2023-10-20] MEDS ORDERED: SPIRONOLACTONE 25 MG TAB PO SCH (10:00)
[2023-10-20] MEDS: levoFLOXacin 500MG 100 ML IV SCH (10:11)
[2023-10-20] MEDS: LOSARTAN POTASSIUM 25 MG TAB PO SCH (10:14)
[2023-10-21] VITALS (12 sets, daily range): BP systolic 114–154; BP diastolic 56–86; PULSE 67–78; RESP 16–20; TEMP 97.5–98.5; O2SAT 94–99
[2023-10-21 07:25] LABS: Basophils # (auto) 0.1 10 ^3/uL (0-0.2); Basophils % (auto) 1.1 % (0.0-2.0); Eosinophils # (auto) 0.4 10 ^3/uL (0-0.8); Hemoglobin 11.3 g/dL (12.2-16.2); Lymphocytes # (auto) 1.6 10 ^3/uL (0.4-5.4); Neutrophils # (auto) 2.8 10 ^3/uL (1.6-8.6); Neutrophils % (auto) 50.9 % (37.0-80.0); White Blood Cell 5.6 10^3/uL (4.4-10.8)
[2023-10-21 07:26] LABS: Eosinophils % (auto) 7.9 % (0.0-7.0); Hematocrit 34.6 % (36.0-46.0); Lymphocytes % (auto) 28.7 % (10.0-50.0); Mean Corpuscular Hgb Conc. 32.8 g/dL (32.0-36.0); Mean Corpuscular Volume 76.5 fL (80.0-100.0); Monocytes # (auto) 0.6 10 ^3/uL (0-1.3); Monocytes % (auto) 11.4 % (0.0-12.0); Nucleated Red Blood Cells % 0.2 %; Red Blood Cells 4.52 10^6/uL (4.0-5.20); Red Cell Distribution Width 14.4 % (11.8-14.3)
[2023-10-21 07:36] LABS: Alanine Aminotransferase 19 U/L (7-40); Alkaline Phosphatase 110 U/L (46-116); Anion Gap 2 (5-15); Aspartate Aminotransferase 19 U/L (13-40); BUN/Creatinine Ratio 17.6 (10.0-20.0); Blood Urea Nitrogen 13 mg/dL (9-23); Calcium 9.8 mg/dL (8.5-10.1); Carbon Dioxide 30 mmol/L (20-30); Chloride 105 mmol/L (98-107); Glucose 82 mg/dL (74-106); Potassium 4.4 mmol/L (3.5-5.1); Sodium 137 mmol/L (136-145)
[2023-10-21 07:37] LABS: Albumin 4.4 g/dL (3.2-4.8); Bilirubin, Total 0.3 mg/dL (0.2-1.0); Total Protein 6.6 g/dL (5.7-8.2)
[2023-10-21] MEDS: CARVEDILOL 3.125 MG TAB PO SCH (09:59)
[2023-10-21] MEDS: LOSARTAN POTASSIUM 25 MG TAB PO SCH (10:00)
[2023-10-22] VITALS (8 sets, daily range): BP systolic 143–157; BP diastolic 74–84; PULSE 75–90; RESP 18–20; TEMP 98.1–98.3; O2SAT 93–98
[2023-10-22] MEDS: ROCURONIUM 10MG/ML 10ML VIAL IV ONE (06:40)
[2023-10-22] MEDS: SUCCINYLCHOLINE CHLORIDE 20 MG/ML 10ML VIAL IV ONE (06:40)
[2023-10-22] MEDS ORDERED: SODIUM CHLORIDE LOCK 10 ML ONE (06:47)
[2023-10-22] MEDS ORDERED: KETAMINE 50mg/ML 1ml syringe ONE (06:47)
[2023-10-22] MEDS ORDERED: LIDOCAINE 1% INJ PF 5ML AMP ONE (06:47)
[2023-10-22] MEDS ORDERED: fentaNYL CITRATE 100 MCG/2 ML VL ONE (06:47)
[2023-10-22] MEDS ORDERED: MEPERIDINE HCL (50 MG/ML) 1 ML VIAL ONE (06:47)
[2023-10-22] MEDS ORDERED: MIDAZOLAM HCL 2MG/2ML 2ml VIAL (1mg/ml) ONE (06:47)
[2023-10-22] MEDS ORDERED: ONDANSETRON HCL 4 MG/2 ML VIAL ONE (06:48)
[2023-10-22] MEDS ORDERED: PROPOFOL 10 MG/ML 20 ML IV ONE (06:48)
[2023-10-22] MEDS ORDERED: fentaNYL CITRATE 100 MCG/2 ML VL IV PRN (07:15)
[2023-10-22] MEDS: ONDANSETRON HCL 4 MG/2 ML VIAL IV ONE (07:15)
[2023-10-22] MEDS: ceFAZolin 2 GM/D5W50ml 50 ML IV ONE (07:17)
[2023-10-22] MEDS: BUPIVACAINE 0.5% P/F INJ 10 ML VIAL ONE (07:26)
[2023-10-22] MEDS: BUPIVACAINE 0.25% INJ 50ML VIAL ONE (07:38)
[2023-10-22] MEDS: LIDOCAINE 1% HCL (LOCAL ANESTH.) INJ 20ML MDV ONE (07:38)
[2023-10-22] MEDS: MORPHINE SULFATE INJ 2 MG/ml SYRG IV PRN (09:03)
[2023-10-22] MEDS: KETOROLAC TROMETH 30 MG/ML 1ML VIAL IV ONE (09:03)
[2023-10-22 11:13] LABS: Alanine Aminotransferase 21 U/L (7-40); Albumin 4.7 g/dL (3.2-4.8); Alkaline Phosphatase 117 U/L (46-116); Anion Gap 3 (5-15); Aspartate Aminotransferase 18 U/L (13-40); BUN/Creatinine Ratio 20.8 (10.0-20.0); Blood Urea Nitrogen 16 mg/dL (9-23); Calcium 9.7 mg/dL (8.7-10.4); Carbon Dioxide 30 mmol/L (20-30); Chloride 105 mmol/L (98-107); Glucose 116 mg/dL (74-106); Magnesium 2.2 mg/dL (1.6-2.6); Potassium 4.1 mmol/L (3.5-5.1); Sodium 138 mmol/L (136-145)
[2023-10-22 11:14] LABS: Bilirubin, Total 0.2 mg/dL (0.2-1.0); Phosphorus 4.3 mg/dL (2.4-5.1); Total Protein 7.2 g/dL (5.7-8.2)
[2023-10-23] VITALS (9 sets, daily range): BP systolic 101–186; BP diastolic 53–93; PULSE 70–98; RESP 16–21; TEMP 97.5–98.4; O2SAT 91–97
[2023-10-23 06:53] LABS: Hemoglobin 10.3 g/dL (12.2-16.2); Mean Corpuscular Volume 76.5 fL (80.0-100.0); Monocytes # (auto) 0.8 10 ^3/uL (0-1.3); Neutrophils # (auto) 4.9 10 ^3/uL (1.6-8.6); Nucleated Red Blood Cells % 0.1 %
[2023-10-23 06:57] LABS: Basophils # (auto) 0 10 ^3/uL (0-0.2); Basophils % (auto) 0.4 % (0.0-2.0); Eosinophils # (auto) 0.1 10 ^3/uL (0-0.8); Eosinophils % (auto) 0.9 % (0.0-7.0); Hematocrit 31.6 % (36.0-46.0); Lymphocytes # (auto) 1.6 10 ^3/uL (0.4-5.4); Lymphocytes % (auto) 22.1 % (10.0-50.0); Mean Corpuscular Hemoglobin 24.9 pg (28.0-32.0); Mean Corpuscular Hgb Conc. 32.6 g/dL (32.0-36.0); Monocytes % (auto) 10.5 % (0.0-12.0); Neutrophils % (auto) 66.1 % (37.0-80.0); Red Blood Cells 4.13 10^6/uL (4.0-5.20); Red Cell Distribution Width 14.4 % (11.8-14.3); White Blood Cell 7.4 10^3/uL (4.4-10.8)
[2023-10-23 07:04] LABS: Alanine Aminotransferase 14 U/L (7-40); Albumin 3.8 g/dL (3.2-4.8); Alkaline Phosphatase 94 U/L (46-116); Anion Gap 5 (5-15); Aspartate Aminotransferase 15 U/L (13-40); Bilirubin, Total 0.2 mg/dL (0.2-1.0); Blood Urea Nitrogen 12 mg/dL (9-23); Calcium 9.2 mg/dL (8.7-10.4); Carbon Dioxide 27 mmol/L (20-30); Chloride 106 mmol/L (98-107); Glucose 85 mg/dL (74-106); Magnesium 2.4 mg/dL (1.6-2.6); Phosphorus 3.7 mg/dL (2.4-5.1); Potassium 3.7 mmol/L (3.5-5.1); Sodium 138 mmol/L (136-145); Total Protein 5.9 g/dL (5.7-8.2)
[2023-10-23] MEDS: KETOROLAC TROMETH 30 MG/ML 1ML VIAL IV PRN (20:19)
[2023-10-24] VITALS (10 sets, daily range): BP systolic 125–155; BP diastolic 52–87; PULSE 68–79; RESP 16–20; TEMP 97.6–98.5; O2SAT 93–96
[2023-10-24 05:40] LABS: Basophils # (auto) 0 10 ^3/uL (0-0.2); Basophils % (auto) 0.9 % (0.0-2.0); Eosinophils # (auto) 0.2 10 ^3/uL (0-0.8); Eosinophils % (auto) 4.3 % (0.0-7.0); Hematocrit 30.8 % (36.0-46.0); Hemoglobin 10.3 g/dL (12.2-16.2); Lymphocytes # (auto) 1.8 10 ^3/uL (0.4-5.4); Lymphocytes % (auto) 36.2 % (10.0-50.0); Mean Corpuscular Hemoglobin 25.7 pg (28.0-32.0); Mean Corpuscular Hgb Conc. 33.4 g/dL (32.0-36.0); Monocytes # (auto) 0.5 10 ^3/uL (0-1.3); Monocytes % (auto) 9.8 % (0.0-12.0); Neutrophils # (auto) 2.4 10 ^3/uL (1.6-8.6); Neutrophils % (auto) 48.8 % (37.0-80.0); Nucleated Red Blood Cells % 0.1 %; Red Cell Distribution Width 14.7 % (11.8-14.3); White Blood Cell 4.9 10^3/uL (4.4-10.8)
[2023-10-24 05:58] LABS: Alanine Aminotransferase 15 U/L (7-40); Albumin 3.8 g/dL (3.2-4.8); Alkaline Phosphatase 97 U/L (46-116); Anion Gap 1 (5-15); Aspartate Aminotransferase 9 U/L (13-40); BUN/Creatinine Ratio 18.9 (10.0-20.0); Blood Urea Nitrogen 14 mg/dL (9-23); Calcium 9.2 mg/dL (8.7-10.4); Carbon Dioxide 28 mmol/L (20-30); Chloride 106 mmol/L (98-107); Glucose 84 mg/dL (74-106); Magnesium 2.2 mg/dL (1.6-2.6); Potassium 4.1 mmol/L (3.5-5.1); Sodium 135 mmol/L (136-145)
[2023-10-24 05:59] LABS: Bilirubin, Total 0.2 mg/dL (0.2-1.0); Total Protein 5.9 g/dL (5.7-8.2)
[2023-10-24 06:24] LABS: CRP High Sensitivity 0.43 mg/dL (<1.0)
[2023-10-25] VITALS (11 sets, daily range): BP systolic 149–170; BP diastolic 82–97; PULSE 69–78; RESP 17–18; TEMP 98.1–98.9; O2SAT 91–97
[2023-10-25 05:45] LABS: Basophils # (auto) 0 10 ^3/uL (0-0.2); Monocytes # (auto) 0.5 10 ^3/uL (0-1.3); Neutrophils # (auto) 2.1 10 ^3/uL (1.6-8.6); Red Cell Distribution Width 14.5 % (11.8-14.3); White Blood Cell 4.3 10^3/uL (4.4-10.8)
[2023-10-25 05:47] LABS: Basophils % (auto) 0.6 % (0.0-2.0); Eosinophils # (auto) 0.2 10 ^3/uL (0-0.8); Eosinophils % (auto) 5.5 % (0.0-7.0); Hematocrit 30.7 % (36.0-46.0); Lymphocytes # (auto) 1.4 10 ^3/uL (0.4-5.4); Lymphocytes % (auto) 32.9 % (10.0-50.0); Mean Corpuscular Hemoglobin 25.2 pg (28.0-32.0); Mean Corpuscular Hgb Conc. 32.7 g/dL (32.0-36.0); Monocytes % (auto) 12.5 % (0.0-12.0); Neutrophils % (auto) 48.5 % (37.0-80.0); Nucleated Red Blood Cells % 0.1 %; Red Blood Cells 3.99 10^6/uL (4.0-5.20)
[2023-10-25 06:21] LABS: Alanine Aminotransferase 14 U/L (7-40); Albumin 3.8 g/dL (3.2-4.8); Alkaline Phosphatase 101 U/L (46-116); Anion Gap 4 (5-15); Aspartate Aminotransferase 11 U/L (13-40); BUN/Creatinine Ratio 17.6 (10.0-20.0); Blood Urea Nitrogen 13 mg/dL (9-23); CRP High Sensitivity 0.43 mg/dL (<1.0); Carbon Dioxide 28 mmol/L (20-30); Chloride 104 mmol/L (98-107); Glucose 93 mg/dL (74-106); Potassium 3.8 mmol/L (3.5-5.1); Sodium 136 mmol/L (136-145)
[2023-10-25 06:22] LABS: Bilirubin, Total 0.2 mg/dL (0.2-1.0); Total Protein 5.6 g/dL (5.7-8.2)
[2023-10-26] VITALS (11 sets, daily range): BP systolic 153–186; BP diastolic 90–97; PULSE 70–80; RESP 16–20; TEMP 97.6–98.3; O2SAT 90–98
[2023-10-26 06:36] LABS: Basophils # (auto) 0 10 ^3/uL (0-0.2); Eosinophils # (auto) 0.3 10 ^3/uL (0-0.8); Hemoglobin 10.9 g/dL (12.2-16.2); Lymphocytes # (auto) 1.5 10 ^3/uL (0.4-5.4); Monocytes # (auto) 0.5 10 ^3/uL (0-1.3); Neutrophils # (auto) 2.2 10 ^3/uL (1.6-8.6); White Blood Cell 4.5 10^3/uL (4.4-10.8)
[2023-10-26 06:38] LABS: Basophils % (auto) 0.5 % (0.0-2.0); Eosinophils % (auto) 6.3 % (0.0-7.0); Hematocrit 33.1 % (36.0-46.0); Mean Corpuscular Hemoglobin 24.8 pg (28.0-32.0); Mean Corpuscular Hgb Conc. 32.9 g/dL (32.0-36.0); Mean Corpuscular Volume 75.4 fL (80.0-100.0); Monocytes % (auto) 11.2 % (0.0-12.0); Nucleated Red Blood Cells % 0.2 %; Red Blood Cells 4.39 10^6/uL (4.0-5.20); Red Cell Distribution Width 14.1 % (11.8-14.3)
[2023-10-26 06:42] LABS: Chloride 105 mmol/L (98-107); Potassium 3.4 mmol/L (3.5-5.1); Sodium 139 mmol/L (136-145)
[2023-10-26 06:43] LABS: Anion Gap 7 (5-15); Calcium 9.2 mg/dL (8.5-10.1); Carbon Dioxide 27 mmol/L (20-30)
[2023-10-26 06:48] LABS: BUN/Creatinine Ratio 15.6 (10.0-20.0); Blood Urea Nitrogen 10 mg/dL (9-23); Glucose 91 mg/dL (74-106)
[2023-10-27] VITALS (8 sets, daily range): BP systolic 144–167; BP diastolic 77–88; PULSE 70–93; RESP 16–18; TEMP 97.8–98.3; O2SAT 93–98
[2023-10-27] MEDS: LOSARTAN POTASSIUM 50 MG TAB PO SCH (10:57)
[2023-10-27] MEDS: CARVEDILOL 12.5 MG TAB PO SCH (10:58)
[2023-10-27] MEDS ORDERED: LEVO750T40 PO (13:31)
== END 2023-10-27 17:25 | disposition home or self-care (01) | DRG 314 ==
LOC: UNDOADMIN 11:11 → EAST 11:11 → OVERFLOW 11:11 → WEST WING 14:23
PROVIDERS: ADMIT Internal Medicine Pulmonary Disease
PROC: 0QBN0ZZ Excision of Right Metatarsal, Open Approach (ICD-10-PCS; 2023-10-22)
PROC: 0LQV0ZZ Repair Right Foot Tendon, Open Approach (ICD-10-PCS; principal; 2023-10-22 07:28)
DX: M86.8X7 Other osteomyelitis, ankle and foot (principal); L03.115 Cellulitis of right lower limb; J84.10 Pulmonary fibrosis, unspecified; I11.0 Hypertensive heart disease with heart failure; I50.32 Chronic diastolic (congestive) heart failure; L97.519 Non-pressure chronic ulcer of other part of right foot with unspecified severity; S91.301A Unspecified open wound, right foot, initial encounter; E03.9 Hypothyroidism, unspecified; F32.A Depression, unspecified; G43.909 Migraine, unspecified, not intractable, without status migrainosus; X58.XXXA Exposure to other specified factors, initial encounter; M06.9 Rheumatoid arthritis, unspecified; Z82.49 Family history of ischemic heart disease and other diseases of the circulatory system; Z88.6 Allergy status to analgesic agent; Z88.5 Allergy status to narcotic agent; Z88.8 Allergy status to other drugs, medicaments and biological substances; Z79.899 Other long term (current) drug therapy; Q66.71 Congenital pes cavus, right foot; Y93.89 Activity, other specified; Y92.89 Other specified places as the place of occurrence of the external cause; Y99.8 Other external cause status
CPT/HCPCS: 36415; 71045; 73620; 73718; 76000; 80048; 80053; 80061; 80202; 80307; 81001; 82140; 82306; 82607; 83036; 83605; 83690; 83735; 84100; 84132; 84443; 85025; 85610; 85730; 86141; 87040; 87070; 87075; 87077; 87086; 87088; 87186; 87205; 93925; 93970; 97110; 97116; 97163; 97530; G0378; J0330; J1450; J1885; J1956; J2001; J2250; J2405; J2704; J3490